=== PATIENT | male | born 1970 | race Caucasian/White ===

== ENCOUNTER 2023-10-15 12:49 | Inpatient (IN) | payer OTHER, SELFPAY ==
[2023-10-15] VITALS (22 sets, daily range): BP systolic 71–133; BP diastolic 49–101; BMI 39.4
--- NOTE | 2023-10-15 10:36 | ED.GENMED ---
Addendum entered and electronically signed by Benji Dockeyr DO 10/15/23 17:00:
Additional diagnoses are diabetic ketoacidosis, renal insufficiency, pseudohyponatremia
Original Note:
History of Present Illness
General
Chief Complaint: Chest Pain
Source: patient and ambulance crew
Exam Limitations: none
Time Seen by Provider: 10/15/23 10:34
Nursing documentation reviewed up to this point in time: agreed with
Travel History
Have you had any contact with someone who has COVID-19?: No
Do you have any symptoms of coronavirus? Fever > 100 degrees, chills, cough, shortness of breath, sore throat, loss of taste or smell, muscle aches, or headache?: No
History of Present Illness
History of Present Illness:
Late entry seen immediately upon presentation prehospital STEMI alert 53-year-old male's been sick with shortness of breath for 2 weeks possibly with COVID said chest burning when he inhaled, went to an urgent care EMS was called initial EKG showed
nonspecific changes EMS his EKG showed ST segment elevation anteriorly placed on oxygen and felt better evaluation here he is chest pain-free still with some ST changes
Hypertension takes valsartan? EMS gave aspirin, states he is not taking a blood thinner
Past History
Past History
ED Past Medical History: HTN and Other (Eliquis? Indication)
Social History
Tobacco: Smoker (Quit recently)
Alcohol: None
Drug: None
Personal:
Living: with family
Employment: Employed
Review of Systems
Review of Systems
All Other Systems: Not applicable
Constitutional: Reports fatigue; Denies fever
Respiratory: Reports trouble breathing
Cardiac: Reports chest pain; Denies diaphoresis or syncope
ABD/GI: Reports no symptoms
: Reports no symptoms
Musculoskeletal: Reports no symptoms
Phy Exam
Physical Exam
Physical Exam:
Physical Exam
General: Ill-appearing
Neck: No jaundice
Heart: s1/s2 regular rate and rhythm, no murmur. equal radial pulses.
Lungs: Crackles bibasilar
Abdomen: Nontender
Neuro: alert and oriented. no focal neurological deficits
Skin: no rash
Psychiatric: well kept. interactive and cooperative
Extremities: No edema pulses are diminished bilaterally
Scores
Heart Score for Chest Pain Patients
STEMI patient?: Yes
Course
Orders/Labs/Results
Orders:
Orders
10/15/23 10:40
CMP [Comprehensive Metabolic Panel] Urgent
Complete Blood Count/With Diff Urgent
PTT Urgent
Troponin I Urgent
10/15/23 10:48
Heparin 1000 Units/500 ml [Heparin] 1,000 units in 500 ml .ROUTE .STK-MED
Heparin Sodium,Porcine/Ns/Pf [Heparin 2000 Units/1000 ml] 2,000 unit in 1,000 ml .ROUTE .STK-MED
Lidocaine HCl/Pf [Xylocaine-Mpf 1% Vial] 50 mg .ROUTE .STK-MED ONE
Nitroglycerin [Tridil] 1,500 mcg .ROUTE .STK-MED ONE
Verapamil Injectable [Isoptin/Verapamil Injection] 5 mg .ROUTE .STK-MED ONE
10/15/23 10:57
NORepinephrine 4 MG/250 ML [Levophed] 4 mg in 250 ml .ROUTE .STK-MED
10/15/23 11:01
Lidocaine HCl/Pf [Xylocaine-Mpf 1% Vial] 50 mg .ROUTE .STK-MED ONE
Abnormal Lab Results
10/15/23
10:40
MPV 11.7 H fL
(7.4-10.4)
Abs Immat Gran (auto) 0.1 H 10^3/uL
(0-0.05)
Absolute Monos (auto) 1.1 H 10^3/uL
(0.1-0.6)
Monocytes % 11.1 H %
(1.7-9.3)
10/15/23 10:40
Vital Signs
Initial and Last Documented VS:
Initial Vital Signs
Pulse Resp BP Pulse Ox
112 18 133/101 96
10/15/23 10:22 10/15/23 10:22 10/15/23 10:22 10/15/23 10:22
Last Documented Vital Signs
Pulse Resp BP Pulse Ox
112 18 103/60 98
10/15/23 10:22 10/15/23 10:22 10/15/23 10:35 10/15/23 10:35
MDM/Problems Addressed
Differential Diagnosis Includes:
DC LV aneurysm PE dissection
MDM/Problems Addressed:
Chest pain shortness
Chronic conditions affecting care: HTN
Acute Exacerbation and/or Progression of Chronic Illness: HTN
*Pulse Oximetry
Patient hypoxic: no
*EKG
Interpreted by ED Provider?: Yes
Interpretation: abnormal
Comparison EKG: no comparison EKG present
Heart Rate: 78
Rate: normal
Rhythm: sinus
Ischemia: ST elevation
*Isotope Technician Interpretation
Rate: normal
Interpretation: normal
Heart Rate: 78
*Critical Care Note
Total Time (30-74mins, 75-104mins- exclusive of procedures): 30
Update Note
Update Note:
Constellation of symptoms most worrisome for ST segment elevation DC, reviewed with cardiology at bedside with taken to [facility]
ED Attending Note
-
Portions of this chart may have been created with voice recognition software.� Occasional wrong word or��sound alike� substitutions may have occurred due to the inherent limitations of voice recognition software.
Discharge Plan
Departure
Patient Disposition: Admit
Date of Disposition: 10/15/23
Time of Disposition: 10:36
Admit to: [facility]
Presentation/result/management discussed w/ accepting MD/DO: cardiolgy Aj
Discharge Problem:
ST elevation DC (STEMI)
Interventions
Interventions:
*Risk Screen - Suicide Last Done: 10/15/23 10:22
*General Assessment Last Done: 10/15/23 10:22
*Neglect/Abuse Screening Last Done: 10/15/23 10:22
ED- Cardiac Assessment Last Done: 10/15/23 11:05
--- NOTE | 2023-10-15 10:47 | ITS.CL.CATH ---
[facility] - Catheterization
Cardiac Catheterization
Procedure Report:
LEFT HEART CATHETERIZATION AND CORONARY INTERVENTION
Date of Procedure: October 15, 2023
Referring: [place] emergency department
PROCEDURES:
1. Left catheterization, coronary angiogram.
2. Ultrasound-guided access
3. Successful percutaneous coronary intervention of a 100% mid LAD occlusion (Lesion Type C, WANDA 0 flow) with a 2.75 x 18 mm Xience arti point drug-eluting stent, successfully postdilated with a 2.75 x 15 mm NC trek balloon at 18 cayla with an
excellent angiographic result and confucianist of WANDA-3 flow into the distal LAD.
INDICATION: Mr Freeman is a 53-year-old gentleman with past medical history of morbid obesity, prediabetes, tobacco abuse, quit 1 month ago, hypertension, recent COVID infection about 4 weeks ago with a 2-week history of on and off chest pressure and
shortness of breath with worsening of symptoms this morning after shower who presented to the urgent care with initial EKG showing sinus tachycardia with J-point elevation in the anterolateral leads. Urgent care set up transfer to emergency
department for further workup and management and and route with EMS his EKG showed significant ST elevations in V2, V3 and V4 for which a prehospital ST elevation MA was called. Patient received full dose aspirin and route however given his soft
blood pressures he did not receive any nitroglycerin. On presentation to the emergency department his pain had subsided and EKG showed no significant ST elevations. Given dynamic ST changes decision was made to activate the heart catheterization
lab to rule out obstructive CAD. Of note, while in the case we received a call from the emergency department that his lab work was concerning for acute DKA with blood glucose level elevated at 700s and bicarb at 11. Patient was loaded with 20 mg
of Brilinta along with 5000 units of IV unfractionated heparin in the emergency department.
ACCESS: Right common femoral artery, 6 Bermudian sheath, under ultrasound guidance using micropuncture kit.
Right radial artery access was attempted however we could not successfully advance her wire despite multiple attempts and thus this was aborted.
HEMODYNAMICS : (mmHg)
AO (s/d) : 84/56
LV (s/d) : 190/3
LVEDP : 17
Transaortic invasive mean gradient severely elevated at 74 mmHg (obtained using 6 Bermudian dual-lumen Corning catheter to allow for simultaneous aortic and LV pressure measurements.)
CORONARY FINDINGS
DOMINANCE: Left
LEFT MAIN: The left main artery is a large-caliber vessel which gives rise to the left anterior descending artery and a left circumflex artery with mild diffuse atherosclerotic plaque.
LEFT ANTERIOR DESCENDING: The left anterior descending artery is a large caliber vessel which gives rise to 1 major small caliber diagonal branch with 100% mid LAD occlusion with presence of dye staining and WANDA 0 flow. This was thought to be the
culprit of patient's presenting acute coronary syndrome.
CIRCUMFLEX: The left circumflex artery is a medium to large caliber, dominant vessel which gives rise to 2 major obtuse marginal branches and the left posterior descending artery. There is mild diffuse atherosclerotic plaque.
RIGHT CORONARY ARTERY: The right coronary artery is a small caliber, nondominant vessel with mild diffuse atherosclerotic plaque.
CORONARY INTERVENTION: The left coronary artery was selectively engaged using a 6 Bermudian EBU 3.5 guide catheter. Additional heparin was given to maintain a therapeutic ACT throughout the case. Given challenging fluoroscopy images due to underlying
body habitus we initially had some difficulty wiring into the actual LAD. After multiple attempts we successfully advance a 190 cm 0.014' BMW coronary wire into the distal LAD. Post coronary wire advancement we noted that the LAD had WANDA-3 flow
now with a hazy smooth tubular 80% stenosis in the mid LAD which we thought was the culprit of patient's presenting acute coronary syndrome. We proceeded with direct stenting of this lesion using a 2.75 x 18 mm Xience arti point drug-eluting stent
which was successfully postdilated using a 2.75 x 15 mm NC trek balloon with excellent angiographic result and WANDA-3 flow down into the distal apical LAD. Throughout the case given patient had borderline blood pressures he needed 1 bolus of 100 mg
of Darrick-Synephrine IV and was started on low-dose Levophed drip. While scrubbed and we received a call from the emergency department physician notifying us that patient's lab work showed concern for possible diabetic ketoacidosis given his blood
sugar of 700 and a bicarb level of 11. Also of note, upon crossing the aortic valve to obtain LV pressures we noted a significant transaortic gradient test at the end of the procedure we went back with a dual-lumen catheter to obtain invasive
pressures which still suggested a significant transaortic gradient despite the ease of being able to cross the aortic valve without much difficulty.
SEDATION: 72 minutes of procedural sedation was utilized. An independent medical radiation dosimetrist was present to assist with and help manage the patient's level of consciousness and physiologic status.
RADIATION SUMMARY: Fluoro Time (min): 9.8, Dose (mGy): 1139.7, DAP (Gy.cm2) : 91.16
Closure Device: 6 Bermudian Angio-Seal of the right common femoral artery with successful hemostasis.
CONCLUSIONS
1. Successful percutaneous coronary intervention of a 100% mid LAD occlusion (Lesion Type C, WANDA 0 flow) with a 2.75 x 18 mm Xience arti point drug-eluting stent, successfully postdilated with a 2.75 x 15 mm NC trek balloon at 18 cayla with an
excellent angiographic result and confucianist of WANDA-3 flow into the distal LAD.
2. Elevated LVEDP.
3. Invasive transaortic mean gradient severely elevated at 74 mmHg (obtained using 6 Bermudian dual-lumen Corning catheter to allow for simultaneous aortic and LV pressure measurements) suggestive of possible critical aortic stenosis.
RECOMMENDATIONS
1. Uninterrupted dual antiplatelet therapy with daily baby aspirin and Brilinta 90 mg twice daily along with high intensity statin and beta-pilar as tolerated. Obtain outpatient cardiology records to clarify indication for Eliquis given it
sounded like possibly an isolated episode of atrial fibrillation in the setting of COVID-19 pneumonia.
2. Bedrest post femoral access per protocol.
3. Defer management of diabetic ketoacidosis to hospitalist team with an insulin drip.
4. Full echocardiogram to assess left ventricular systolic function, wall motions and evaluate aortic valve given concern for possible critical aortic stenosis.
5. Aggressive management of cardiovascular risk factors.
6. Eventual referral for outpatient cardiac rehab.
Chelita Rocha MD, FACC, [facility]
[2023-10-15 10:50] LABS: % Eosinophils 0.6 % (0-6); % Immature Granulocytes 0.5 % (0-0.5); % Lymphocytes 24.8 % (20.5-51.1); % Monocytes 11.1 % (1.7-9.3); Absolute Basophils 0.1 10^3/uL (0-0.2); Absolute Eosinophils 0.1 10^3/uL (0-0.7); Absolute Immature Granulocytes 0.1 10^3/uL (0-0.05); Absolute Lymphocytes 2.5 10^3/uL (1.2-3.4); Absolute Monocytes 1.1 10^3/uL (0.1-0.6); Absolute Neutrophils 6.2 10^3/uL (1.4-6.5); Hematocrit 41.9 % (39.0-52.0); Hemoglobin 15.1 g/dL (13.0-18.0); Mean Corpuscular Hgb 28.8 pg (27.0-31.0); Mean Platelet Volume 11.7 fL (7.4-10.4); Nucleated Red Blood Cells % 0 % (-); Platelet Count 288 10^3/uL (130-400); Red Blood Cell Count 5.24 10^6/uL (4.70-6.10)
[2023-10-15 10:59] LABS: APTT 26.4 Sec (23.4-35.0)
[2023-10-15 11:07] LABS: ALT (SGPT) 189 U/L (0-50); AST (SGOT) 144 U/L (17-59); Albumin 4.3 g/dl (3.5-5.0); Alkaline Phosphatase 217 U/L (38-126); Blood Urea Nitrogen 36 mg/dl (9-20); Calcium 9.5 mg/dl (8.4-10.2); Carbon Dioxide 11 mmol/L (22-30); Chloride 90 mmol/L (98-107); Estimated Creatinine Clearance 73 ml/min; Potassium 4.8 mmol/L (3.5-5.1); Sodium 123 mmol/L (135-145); Total Bilirubin 1.1 mg/dl (0.2-1.3); Total Protein 6.9 g/dl (6.3-8.2); eGFR 50.57
[2023-10-15 11:15] LABS: Troponin I 0.083 ng/ml
[2023-10-15 11:31] LABS: Glucose 723 mg/dl (70-99)
[2023-10-15 11:35] LABS: ACT-LR - POC 240 Seconds (116-155)
--- NOTE | 2023-10-15 11:42 | HPS.HSE ---
Addendum entered and electronically signed by Noel Dye MD 10/29/23 06:50:
Allergies
Allergy/AdvReac Type Severity Reaction Status Date / Time
No Known Allergies Allergy Unverified 10/15/23 10:31
Home Medications
Centrum Adult 50 Plus 1XD Supplement PO
Prilosec OTC 20 1XD Gastrointestinal Issue PO
magnesium oxide 500 mg PO DAILY Electrolyte Repletion
metformin 500 mg tablet 500 mg PO QPM
Original Note:
Family Physician
-
Family Physician: Patrice Oneal
Chief Complaint
-
Chest Pain
History of Present Illness
53M morbid obesity former smoker (quit 1 month ago) COVID infection 1 month ago p/w with progressive chest pain exertional dyspnea for past 2 weeks described as burning left sided occasionally radiating to right- prompted by to visit ED when
pain became significantly debilitating limiting ambulation. Occasionally use cane for ambulation due to past knee surgery. ED evaluation was significant for STEMI, troponin elevation 0.083, DKA anion gap 22 with sugar 723, pseudohyponatremia 123
corrected for hyperglycemia 130s. Taken urgently to laboratory monitor LAD stent was placed with subsequent resolution of symptoms, chest pain and dyspnea. Denies nausea vomiting. Tachycardia otherwise VSS.
Medical History
Past Medical History
Past Medical History: Reports Other (as above)
Past Surgical History: Reports Other (as above)
Social History
Tobacco: Former Smoker
Alcohol: None
Drug: None
Personal:
Living: With Family
Employment: Not Employed
Family History
Family History: Not pertinent (reviewed)
Allergies / Home Medications
Allergies reflects when Allergies were last updated in [employer].
Home Medications with original date entered in [employer]
Allergy/Medication List:
Allergies
Allergy/AdvReac Type Severity Reaction Status Date / Time
No Known Allergies Allergy Unverified 10/15/23 10:31
Review of Systems
-
A 12 point ROS was completed and negative except as noted: Yes
Constitutional: Reports Other (as below)
Physical Exam
Vital Signs
Vital Signs
Pulse Resp BP Pulse Ox
112 18 103/60 98
10/15/23 10:22 10/15/23 10:22 10/15/23 10:35 10/15/23 11:06
Physical Exam
General: Other (as below)
Laboratory Results
-
10/15/23 10:40
10/15/23 10:40
Laboratory Results
APTT 26.4 Sec (23.4-35.0) 10/15/23 10:40
Total Bilirubin 1.1 mg/dl (0.2-1.3) 10/15/23 10:40
AST 144 U/L (17-59) H 10/15/23 10:40
ALT 189 U/L (0-50) H 10/15/23 10:40
Alkaline Phosphatase 217 U/L (38-126) H 10/15/23 10:40
Troponin I 0.083 ng/ml H* 10/15/23 10:40
Impression/Plan
-
ROS
General: Denies fever chills night sweats unexpected weight loss
Neuro: Denies seizure shaking loss of consciousness dizziness vertigo
Psych: denies depression hallucinations confusion manic episodes
Endocrine: Denies polyuria polydipsia polyphagia heat/cold intolerance
HEENT: Denies blindness visual disturbances epistaxis
Pulmonary: denies coughing hemoptysis sneezing reports sob dyspnea on exertion (currently resolved at rest following cath)
Cardiovascular: reports chest pain resolved
Hematology: denies signs symptoms of anemia easy bruising/bleeding
Gastrointestinal: denies nausea vomiting diarrhea constipation hematemesis hematochezia melena
Genito-Urinary: denies retention incontinence dysuria
Musculoskeletal: denies joint pain weakness
Dermatology: denies rash laceration bruising
Physical Exam
General: No pallor, cyanosis, or jaundice.
HEENT: Throat clear. PERRLA Normocephalic atraumatic
NECK: Supple. No JVD Carotid Bruits
RESPIRATORY: Lungs clear to auscultation. No crackles wheezes stridor
CVS: Tachycardia
ABDOMEN: Soft, non-tender. No distension. BS+/normal.
EXTREMITIES: No peripheral cyanosis or edema.
BOAT DECKHAND: AOx3. No focal deficits.
IMPRESSION:
53M morbid obesity former smoker (quit 1 month ago) COVID infection 1 month ago p/w with progressive chest pain exertional dyspnea for past 2 weeks described as burning left sided occasionally radiating to right- prompted by to visit ED when
pain became significantly debilitating limiting ambulation. Occasionally use cane for ambulation due to past knee surgery. ED evaluation was significant for STEMI, troponin elevation 0.083, DKA anion gap 22 with sugar 723, pseudohyponatremia 123
corrected for hyperglycemia 130s. Taken urgently to laboratory monitor LAD stent was placed with subsequent resolution of symptoms, chest pain and dyspnea. Denies nausea vomiting. Tachycardia otherwise VSS.
PLAN:
#NSTEMI
Cardio eval appreciated status post cath with LAD stent placement 10/15
Continue statin DAPT (aspirin and Brilinta) as per cardio
#Diabetes
#DKA
#Pseudohyponatremia, sodium relatively within normal limits when corrected for hyperglycemia
#Possible TRAMAINE versus CKD initial creatinine 1.6 unknown baseline
ICU admit
Training And Development Specialist eval requested
Monitor Na
Follow-up A1c
Insulin GTT
IV fluid with potassium supplementation
Follow-up VBG
Monitor anion gap and renal function
#Morbid obesity
DVT prophylaxis heparin
GI prophylaxis Protonix
Full code
I spent a total of 78 minutes with the patient or on the floor. More than 50% of this time involved counseling and coordination of care.
[2023-10-15 11:55] LABS: ACT-LR - POC 265 Seconds (116-155)
[2023-10-15 12:50] LABS: Glucose - Point of Care > 600 mg/dl (70-99)
--- NOTE | 2023-10-15 12:51 | CON.INTV ---
Consultation
Consultation Request
Date/Time Consultation Requested: 10-15-23
Date/Time Consultation Performed: 10-15-23
Requesting Provider: Hospitalist
Performing Provider: Dr Rhodes
Reason for Consultation: AMI
Medical History
-
Chief Complaint: CP
History of Present Illness:
Mr Freeman is a 53/M adm 10-14 with 2 wk h/o progressive dyspnea, he suspected COVID but not confirmed by testing, no specific meds.
Went to where EKG was abnormal, EMS called, given ASA and brought to ER.
At ER, ST elevation in anterior leads, started on IV heparin, taken to labour market economist, LAD stented. Elevated G with elevated AG. Transferred to ICU after LAD stenting, on NE gtt
Denies dyspnea, CP, n/v
Former smoker and drinker, quit 1 m ago
Not on home O2 or BDs
Followed by outside cards practice for CP
Past Medical History
Past Medical History: Other (see A&P for PMH/PSH)
Social History
Tobacco: Former Smoker
Alcohol: Former
Drug: Marijuana (used to be in medical marijuana in past)
Personal:
Living: With Family
Employment: Not Employed
Family History
Family History: Reviewed & Not Pertinent
Allergies / Home Medications
Allergies
Allergy/AdvReac Type Severity Reaction Status Date / Time
No Known Allergies Allergy Unverified 10/15/23 10:31
Review of Systems
-
History Source: Patient
All other systems: Negative unless noted
Cardiac: Chest Pain
Neuro: Other (anxiety)
Vitals / Labs / Diagnostic Testing
Vital Signs
Pulse Resp BP Pulse Ox
112 18 103/60 98
10/15/23 10:22 10/15/23 10:22 10/15/23 10:35 10/15/23 11:06
Lab Data
10/15/23 10:40
Laboratory Results
10/15/23
10:40
APTT 26.4
Diagnostic Testing:
Physical Exam
-
HEENT: Normocephalic, Moist Mucous Membranes and Other (forehead lipoma)
Cardiovascular: Regular Rhythm, Murmur (AV), Peripheral Edema and JVD
Respiratory: Clear and Non-Labored Respirations
GI: Soft, Non Distended and Non Tender
Neurology: Awake, AO x 3, No Motor Deficits and Other (anxious)
Skin: Dry
General: Respiratory Distress (n)
Assessment
-
Assessment:
Mr Freeman is a 53/M adm 10-14 with 2 wk h/o progressive dyspnea, he suspected COVID but not confirmed by testing, no specific meds. Went to where EKG was abnormal, EMS called, given ASA and brought to ER. At ER, ST elevation in anterior leads,
started on IV heparin, taken to labour market economist, LAD stented. Elevated G with elevated AG. Transferred to ICU after LAD stenting, on NE gtt
Impression:
STEMI
S/p LAD stenting
Suspected significant AD
Elevated troponin
DKA
Transaminitis
Conditions MILL MANAGER:
CAD: followed by outside cards practice, received ST in past with inconclusive results
HTN
PAFib, not on AC
BRODIE, could not tolerate CPAP
Former heavy smoker, quit 1 m MILL MANAGER
Former ETOH use, quit 1 m MILL MANAGER
Plan:
O2 protocol
Keep POx>=94%
Asp precs
IS
Continue ticagrelor and low dose ASA
Cards following
Monitor R groin (entry site for [facility])
prn SL NTG
DKA likely triggered by ACS in a patient with prediabetes condition
DKA protocol
Insulin IV gtt
NS
Electrolyte replacement as needed
Per patient h/o 'borderline diabetes, not on outpatient therapy
Discontinue NE gtt due to interim hypertension
Transaminitis likely due to ACS
GI and DVT prophylaxis
Critical care time: 35 min
[2023-10-15 13:07] LABS: Venous Blood Gas HCO3 14.7 mmol/L (22-27); Venous Blood Gas O2 Sat % 97.7 %; Venous Blood Gas pCO2 26 mmHg (35-48); Venous Blood Gas pH 7.36 (7.32-7.43); Venous Blood Gas pO2 86 mmHg (30-50)
--- NOTE | 2023-10-15 13:07 | CON.CAR ---
Consultation
Consultation Request
Date/Time Consultation Requested: 10/15/2023
Date/Time Consultation Performed: 10/15/2023
Requesting Provider: Dr. Dye
Performing Provider: Dr. Mcgarry
Reason for Consultation: STEMI
Medical History
-
Chief Complaint: Chest pain/STEMI
History of Present Illness:
53-year-old male (primarily known to Dr. Taylor) with paroxysmal atrial fibrillation (recently prescribed Eliquis, but patient has not began taking), hypertension, chronic cigarette use (approximately one half PPD since age 11; quit 1 month ago
after marisol COVID), and obesity admitted with a STEMI. Patient underwent successful stenting of the mid LAD. He was also found to be in DKA with a blood glucose above 700. The patient states that he had been having recurrent episodes of
chest pain and has also been experiencing significant thirst and dry mouth. He presented to urgent care today who found an abnormal EKG, whereby EMS was called and the patient was transported to [facility]. The patient states that he was
told that he had a heart murmur last year, but it does not appear that he underwent an echocardiogram.
Past Medical History
Past Medical History: HTN
Past Surgical History: Orthopedic (Rotator cuff surgery, knee scope, back injections)
Social History
Tobacco: Smoker (Quit 1 month ago; smoked since age 11)
Alcohol: Daily
Drug: Marijuana (Medical marijuana)
Personal:
Living: With Family
Family History
Family History: Reviewed & Not Pertinent
Allergies / Home Medications
Allergy/AdvReac Type Severity Reaction Status Date / Time
No Known Allergies Allergy Unverified 10/15/23 10:31
Review of Systems
-
History Source: Patient
All other systems: Negative unless noted
Endocrine: Polydipsia
Physical Exam
Vital Signs
Temp Pulse Resp BP Pulse Ox
99.2 F 112 18 103/60 98
10/15/23 13:00 02/03/24 10:22 10/15/23 10:22 10/15/23 10:35 10/15/23 11:06
Lab Results
10/15/23 10:40
Troponin I 0.083 ng/ml H* 10/15/23 10:40
Physical Exam
General: No Apparent Distress and Comfortable
HEENT: Anicteric and Other (Dry oral mucous membranes)
Respiratory: Clear
Cardiac: S1/S2, Regular Rhythm and Murmur (3/6 systolic)
Breast: N/A
GI: Soft
Rectal: Deferred by Provider
Musculoskeletal: No Clubbing, No Cyanosis and No Edema
Skin: Warm
Neuro: AO x 3
Psych: Calm
Impression / Plan
-
53-year-old male (primarily known to Dr. Taylor) with paroxysmal atrial fibrillation (recently prescribed Eliquis, but patient has not began taking), hypertension, chronic cigarette use (approximately one half PPD since age 11; quit 1 month ago
after marisol COVID), and obesity admitted with a STEMI.
CAD/STEMI:
-Successful HOLGER to mid LAD.
-Continue aspirin/Brilinta.
-Continue rosuvastatin 40 mg daily.
-Will continue to optimize throughout hospitalization as vitals allow (beta-pilar, etc.).
-Echocardiogram today.
-playground monitor.
Heart murmur:
-Cardiac catheterization with concern for severe aortic stenosis as the mean gradient obtained preliminarily was 77 mmHg.
-Echocardiogram today as above.
DKA:
-Sodium 123, carbon dioxide 11, BUN 36, creatinine 1.6, glucose 7.23; elevated LFTs.
-Management as per primary team.
PAF:
-Patient never initiated Eliquis as an outpatient.
Hypertension:
-Will optimize medications prior to discharge.
Chronic smoker.
-Should continue to refrain from tobacco use.
Obesity:
-Aggressive weight loss and regular exercise recommended.
Data Reviewed
-
EKG: Tracing Personally Visualized and interpreted (Sinus tachycardia at [address].)
Labs: Labs Reviewed by me and Discussed with Physician (Interventional Cardiology, Hospitalist)
Old Records: Requested
[2023-10-15 13:44] LABS: Troponin I 0.081 ng/ml
[2023-10-15 13:46] LABS: Blood Urea Nitrogen 36 mg/dl (9-20); Carbon Dioxide 13 mmol/L (22-30); Chloride 92 mmol/L (98-107); Estimated Creatinine Clearance 71 ml/min; Potassium 4.6 mmol/L (3.5-5.1); Sodium 125 mmol/L (135-145); eGFR 50.57
[2023-10-15 14:03] LABS: Glucose 636 mg/dl (70-99)
[2023-10-15] MEDS: NOVOLIN R INSULIN INFUSION 100 IV (14:22)
[2023-10-15 14:25] LABS: Glycohemoglobin (HgbA1c) > 18.5 % (4.0-5.6)
[2023-10-15] MEDS: NSS with KCL 20 MEQ 1000 IV ×2 (14:59→19:34)
[2023-10-15 15:48] LABS: Glucose - Point of Care 553 mg/dl (70-99)
[2023-10-15] MEDS: HEPARIN 5000 UNITS SC (16:04)
[2023-10-15] MEDS: PROTONIX 40 MG PO (16:04)
[2023-10-15 16:17] LABS: Glucose 586 mg/dl (70-99)
--- NOTE | 2023-10-15 16:25 | PTCARENOTE ---
R groin cath site oozing. Dressing removed. Pressure held for 10 minutes. Dressing reapplied. Site dry and intact. Support offered to patient and .
--- NOTE | 2023-10-15 16:38 | PTCARENOTE ---
Dr Dye aware of glucose. Insulin drip remains at 6U/hr.
[2023-10-15 16:46] LABS: Glucose - Point of Care 523 mg/dl (70-99)
[2023-10-15 17:30] LABS: Glucose 511 mg/dl (70-99)
[2023-10-15 18:14] LABS: Glucose - Point of Care 448 mg/dl (70-99)
[2023-10-15] MEDS: CRESTOR 40 MG PO (18:17)
--- NOTE | 2023-10-15 18:30 | PTCARENOTE ---
HOB raised approx 20 degrees. Groin site remains intact. No distress. Monitoring glucose as ordered. Denies pain. Appears comfortable.
[2023-10-15 18:55] LABS: Blood Urea Nitrogen 40 mg/dl (9-20); Calcium 8.9 mg/dl (8.4-10.2); Carbon Dioxide 19 mmol/L (22-30); Chloride 97 mmol/L (98-107); Estimated Creatinine Clearance 67 ml/min; Glucose 453 mg/dl (70-99); Potassium 4.2 mmol/L (3.5-5.1); Sodium 128 mmol/L (135-145); eGFR 47.02
[2023-10-15 18:56] LABS: Troponin I 0.134 ng/ml
[2023-10-15 19:14] LABS: Glucose - Point of Care 410 mg/dl (70-99)
[2023-10-15] MEDS: BRILINTA 90 MG PO (19:34)
[2023-10-15 19:44] LABS: Glucose 434 mg/dl (70-99)
[2023-10-15 20:08] LABS: Glucose - Point of Care 390 mg/dl (70-99)
[2023-10-15] MEDS: NSS 250 IV (20:18)
--- NOTE | 2023-10-15 20:30 | PTCARENOTE ---
Assumed care of patient at 1900. Pt. currently in bed. Awake, alert, and oriented. States he has no pain or discomfort at this time. Afebrile. Heart rhythm sinus. Blood pressure hypotensive 70s/40s. Nurse Practitioner made aware. 250ml NSS bolus
ordered and given. Pt. currently on room air. Lungs sound diminished. NPO. Insulin gtt infusing per DKA protocol. Voiding in urinal without issue. Skin as documented. Discussed plan of care. Vital signs stable at this time.
[2023-10-15 21:08] LABS: Glucose - Point of Care 332 mg/dl (70-99)
[2023-10-15 22:08] LABS: Glucose - Point of Care 275 mg/dl (70-99)
[2023-10-15 22:40] LABS: Blood Urea Nitrogen 42 mg/dl (9-20); Calcium 8.8 mg/dl (8.4-10.2); Carbon Dioxide 19 mmol/L (22-30); Chloride 102 mmol/L (98-107); Estimated Creatinine Clearance 57 ml/min; Glucose 309 mg/dl (70-99); Potassium 4.1 mmol/L (3.5-5.1); Sodium 130 mmol/L (135-145); eGFR 38.69
[2023-10-15 23:13] LABS: Glucose - Point of Care 316 mg/dl (70-99)
[2023-10-16] VITALS (30 sets, daily range): BP systolic 83–146; BP diastolic 43–124; BMI 39.7
[2023-10-16 00:11] LABS: Glucose - Point of Care 256 mg/dl (70-99)
--- NOTE | 2023-10-16 00:12 | PTCARENOTE ---
Pt. currently on levophed gtt to maintain MAP >65. Continuing insulin gtt and IVF per DKA protocol. Trending lab work. Groin site remains intact, no bleeding or hematoma noted. Pulses present. Vital signs stable at this time.
[2023-10-16] MEDS: HEPARIN 5000 UNITS SC ×4 (00:56→23:06)
[2023-10-16 01:11] LABS: Glucose - Point of Care 248 mg/dl (70-99)
[2023-10-16 02:05] LABS: Blood Urea Nitrogen 41 mg/dl (9-20); Calcium 8.5 mg/dl (8.4-10.2); Carbon Dioxide 19 mmol/L (22-30); Chloride 105 mmol/L (98-107); Estimated Creatinine Clearance 67 ml/min; Glucose 256 mg/dl (70-99); Potassium 3.8 mmol/L (3.5-5.1); Sodium 133 mmol/L (135-145); Troponin I 0.157 ng/ml; eGFR 47.02
[2023-10-16 02:16] LABS: Glucose - Point of Care 243 mg/dl (70-99)
[2023-10-16] MEDS: NSS with KCL 20 MEQ 1000 IV (02:58)
[2023-10-16 03:07] LABS: Glucose - Point of Care 241 mg/dl (70-99)
[2023-10-16] MEDS: LEVOPHED 250 IV (04:02)
[2023-10-16 04:07] LABS: Glucose - Point of Care 260 mg/dl (70-99)
--- NOTE | 2023-10-16 04:30 | PTCARENOTE ---
Pt. assessment remains unchanged. Levophed gtt infusing. Insulin gtt infusing per DKA protocol. Trending lab work. Vital signs stable at this time.
[2023-10-16 05:18] LABS: Glucose - Point of Care 238 mg/dl (70-99)
[2023-10-16] MEDS: D5/0.45%NSS with KCL 20 MEQ 1000 IV ×2 (05:24→13:49)
[2023-10-16 05:51] LABS: Hematocrit 35.8 % (39.0-52.0); Mean Corp Hgb Conc. 36.3 g/dL (33.0-37.0); Mean Corpuscular Hgb 29.8 pg (27.0-31.0); Mean Corpuscular Volume 82.1 fL (80.0-94.0); Mean Platelet Volume 11.1 fL (7.4-10.4); Platelet Count 234 10^3/uL (130-400); Red Blood Cell Count 4.36 10^6/uL (4.70-6.10); Red Cell Dist. Width 14.5 % (11.5-14.5); White Blood Cell Count 9.8 10^3/uL (4.8-10.8)
[2023-10-16 06:12] LABS: Blood Urea Nitrogen 40 mg/dl (9-20); Calcium 8.6 mg/dl (8.4-10.2); Carbon Dioxide 19 mmol/L (22-30); Chloride 106 mmol/L (98-107); Estimated Creatinine Clearance 82 ml/min; Glucose 225 mg/dl (70-99); Potassium 3.7 mmol/L (3.5-5.1); Sodium 133 mmol/L (135-145); eGFR 59.36
[2023-10-16 06:13] LABS: INR 1.09
[2023-10-16 06:14] LABS: Glucose - Point of Care 260 mg/dl (70-99)
[2023-10-16 07:09] LABS: Glucose - Point of Care 264 mg/dl (70-99)
[2023-10-16] MEDS: LOW STRENGTH ASPIRIN 81 MG PO (07:41)
[2023-10-16] MEDS: BRILINTA 90 MG PO ×2 (07:41→20:24)
[2023-10-16] MEDS: PROTONIX 40 MG PO (07:41)
--- NOTE | 2023-10-16 07:51 | W.PN.HOSP.TC ---
Today's Communication/Plan
-
Insulin gtt transitioned to Subq
downgrade to IVU
continue glycemic control
DAPT statin as per Cardio
Diabetes PHOTO BOOTH OPERATOR consult in AM Tuesday
Assessment / Plan
Assessment / Plan
Physical Exam
General: No pallor, cyanosis, or jaundice.
HEENT: Throat clear. PERRLA Normocephalic atraumatic
NECK: Supple. No JVD Carotid Bruits
RESPIRATORY: Lungs clear to auscultation. No crackles wheezes stridor
CVS: Tachycardia
ABDOMEN: Soft, non-tender. No distension. BS+/normal.
EXTREMITIES: No peripheral cyanosis or edema.
SHELL FREEZING MACHINE OPERATOR: AOx3. No focal deficits.
IMPRESSION:
53M morbid obesity former smoker (quit 1 month ago) COVID infection 1 month ago p/w with progressive chest pain exertional dyspnea for past 2 weeks described as burning left sided occasionally radiating to right- prompted by to visit ED when
pain became significantly debilitating limiting ambulation.� Occasionally use cane for ambulation due to past knee surgery.� ED evaluation was significant for STEMI, troponin elevation 0.083, DKA anion gap 22 with sugar 723,� pseudohyponatremia 123
corrected for hyperglycemia 130s.� Taken urgently to laborer brush clearing LAD stent was placed with subsequent resolution of symptoms, chest pain and dyspnea.� Denies nausea vomiting.� Tachycardia otherwise VSS.
PLAN:
#STEMI (correction to prior documentation)
#HOCM
#possible hx pAfib
Cardio eval appreciated status post cath with LAD stent placement 10/15
Continue statin DAPT (aspirin and Brilinta) as per Cardio, possible triple therapy if hx pafib confirmed with patient's outpatient visual designer
ECHO noted mod to severe concentric left ventricular hypertrophy EF>75% consistent with HOCM
Troponin trended to peak 0.157 since trended down
Currently Chest pain free
#Diabetes
#DKA
#Pseudohyponatremia, sodium relatively within normal limits when corrected for hyperglycemia
#Possible TRAMAINE versus CKD initial creatinine 1.6 unknown baseline
ICU admit
downgraded to IVU 10/16 with resolution DKA
Magnetic Testing Technician eval appreciated
Follow-up A1c >18.5
Insulin GTT transitioned to SubQ following closing of anion gap
IV fluid supplementation since discontinued with diet resumed tolerating well
Novolog 5U premeal, medium dose sliding scale, Lantus 10U HS
will monitor and titrate insulin regimen as necessary
Diabetes PHOTO BOOTH OPERATOR consult in AM Tuesday (not available over weekend)
#Morbid obesity
DVT prophylaxis heparin
GI prophylaxis Protonix
Full code
I spent a total of 55� � minutes with the patient or on the floor. More than 50% of this time involved counseling and coordination of care.
Anticipated Discharge: 24 - 48 hours
Subjective/Interval History
-
Date of Service: October 16, 2023
No acute distress resting comfortably in bed. Denies any no acute issues. Eager to resume oral diet. denies nausea vomiting chest pain
Objective Data
-
Labs:
Laboratory Results
10/15/23 10/16/23 10/16/23
22:12 01:34 05:33
WBC 9.8
Hgb 13.0
Hct 35.8 L
Plt Count 234
PT 14.0
INR 1.09
APTT 27.0
Sodium 130 L 133 L 133 L
Potassium 4.1 3.8 3.7
Chloride 102 105 106
Carbon Dioxide 19 L 19 L 19 L
BUN 42 H 41 H 40 H
Creatinine 2.0 H 1.7 H 1.4 H
Glucose 309 H 256 H 225 H
Calcium 8.8 8.5 8.6
Vital Signs:
Vital Signs
Temp Pulse Resp BP Pulse Ox
97.3 F 80 18 113/65 97
10/16/23 07:44 10/16/23 06:04 10/16/23 06:04 10/16/23 06:04 10/16/23 06:04
I&O
10/15/23 10/16/23 10/17/23
06:59 06:59 06:59
Intake Total 3129.0 / 3129.0
Output Total 1250 / 1250
Balance 1879.0 / 1879.0
[2023-10-16 08:15] LABS: Glucose - Point of Care 264 mg/dl (70-99)
[2023-10-16] MEDS: NOVOLIN R INSULIN INFUSION 100 IV (09:06)
[2023-10-16 09:13] LABS: Glucose - Point of Care 313 mg/dl (70-99)
[2023-10-16 10:16] LABS: Glucose - Point of Care 326 mg/dl (70-99)
--- NOTE | 2023-10-16 10:40 | W.PN.INTV ---
Today's Communication / Plan
Recommendations
IVU
Reconsult prn
Assessment
-
Assessment:
Mr Freeman is a 53/M adm 10-14 with 2 wk h/o progressive dyspnea, he suspected COVID but not confirmed by testing, no specific meds. Went to where EKG was abnormal, EMS called, given ASA and brought to ER. At ER, ST elevation in anterior leads,
started on IV heparin, taken to medical lab specialist, LAD stented. Elevated G with elevated AG. Transferred to ICU after LAD stenting, on NE gtt
Impression:
STEMI
S/p LAD stenting
Suspected significant AD
Elevated troponin
DKA
Transaminitis
Conditions INTERMEDIATE MANAGER:
CAD: followed by outside cards practice, received ST in past with inconclusive results
HTN
PAFib, not on AC
BRODIE, could not tolerate CPAP
Former heavy smoker, quit 1 m INTERMEDIATE MANAGER
Former ETOH use, quit 1 m INTERMEDIATE MANAGER
Plan:
O2 protocol
Keep POx>=94%
Asp precs
IS
Continue ticagrelor and low dose ASA
Cards following
prn SL NTG
DKA likely triggered by ACS in a patient with prediabetes condition
DKA protocol
Insulin IV gtt
NS
AG closed
Transition IV insulin to corrective insulin SS
Electrolyte replacement as needed
Per patient h/o 'borderline' diabetes, not on outpatient therapy
Discontinue NE gtt due to interim hypertension
Transaminitis likely due to ACS
GI and DVT prophylaxis
D/w Mr Freeman
D/w Dr Young
Can transfer to IVU
Reconsult prn
Subjective Dataa
Subjective Data
Date of Service:
Date of Service: October 16, 2023
Chief Complaint: Facility Maintenance Manager Follow Up
Subjective:
No major events reported overnight
No chest pain
No respiratory distress, pulse ox 95 to 97% on room air
Review of Systems
General: Fever (n), Sweats, Chills (n) and Satisfactory Appetite (n)
HEENT: Epistaxis (n) and Dysphagia (n)
Cardiopulmonary: Dyspnea, Cough and Chest Pain (n)
GI: Abdominal Pain (n), Nausea (n) and Vomiting (n)
Neuro: Weakness (n)
Objective Data
Data Reviewed
Vital Signs / I&O / Oxygen:
Vital Signs
Temp Pulse Resp BP Pulse Ox
97.3 F 80 18 113/65 94
10/16/23 07:44 10/16/23 06:04 10/16/23 06:04 10/16/23 06:04 10/16/23 08:00
Intake and Output
10/15/23 10/16/23 10/17/23
06:59 06:59 06:59
Intake Total 3129.0 / 3298.0 330.5 / 330.5
Output Total 1250 / 1250 200 / 200
Balance 1879.0 / 2048.0 130.5 / 130.5
SaO2 94
Nasal Cannula flow liters per 2
minute
Physical Exam
General: Comfortable
HEENT: Normocephalic and Moist Mucous Membranes
Cardiovascular: Regular Rhythm, Murmur (AV) and Peripheral Edema (n)
Respiratory: Clear, Non-Labored Respirations and Stridor
GI: Soft, Non Distended and Non Tender
Neurology: Awake, AO x 3 and No Motor Deficits
Skin: Dry
Labs/Micro/Reports
Lab Data
10/16/23 05:33
Laboratory Results
10/15/23 10/16/23
10:40 05:33
PT 14.0
INR 1.09
APTT 26.4 27.0
[2023-10-16] MEDS: LANTUS 0.100000000000000006 UNITS SC ×2 (11:01→23:00)
[2023-10-16] MEDS: NOVOLOG FLEXPEN 3 UNITS SC (11:01)
--- NOTE | 2023-10-16 11:23 | W.PN.CD ---
Today's Communication / Plan
-
-Relatively stable successful HOLGER to mid LAD yesterday (10/15/2023).
-Echocardiographic findings yesterday were consistent with HOCM, moderate to severe concentric LVH, and hyperdynamic LV function with LVEF >75%.
-Will try to initiate Toprol-XL (starting at 25 mg daily) as blood pressure improves; will reevaluate tomorrow.
-Needs aggressive IV fluids for HOCM in the setting of DKA.
-Obtain records for primary [facility] tomorrow; if it is confirmed that patient has PAF, then triple therapy is recommended for 1 week by Interventional Cardiology and then Eliquis with Brilinta (or Plavix)--patient is currently in sinus rhythm.
Impression / Plan
-
53-year-old male (primarily known to Dr. Taylor) with paroxysmal atrial fibrillation (recently prescribed Eliquis, but patient has not began taking), hypertension, chronic cigarette use (approximately one half PPD since age 11; quit 1 month ago
after marisol COVID), and obesity admitted with a STEMI.
CAD/STEMI:
-Relatively stable successful HOLGER to mid LAD yesterday (10/15/2023).
-Continue aspirin/Brilinta.
-Continue rosuvastatin 40 mg daily.
-Will continue to optimize throughout hospitalization as vitals allow (beta-pilar, etc.).
-Continue quality assurance monitor.
HOCM:
-Echocardiographic findings yesterday were consistent with HOCM, moderate to severe concentric LVH, and hyperdynamic LV function with LVEF >75%.
-Will try to initiate Toprol-XL (starting at 25 mg daily) as blood pressure improves; will reevaluate tomorrow.
-Needs aggressive IV fluids for HOCM in the setting of DKA.
DKA:
-Sodium 123, carbon dioxide 11, BUN 36, creatinine 1.6, glucose 7.23; elevated LFTs.
-Currently on an insulin drip.
-Management as per primary team.
PAF:
-Patient never initiated Eliquis as an outpatient.
-Obtain records for primary [facility] tomorrow; if it is confirmed that patient has PAF, then triple therapy is recommended for 1 week by Interventional Cardiology and then Eliquis with Brilinta (or Plavix)--patient is currently in sinus rhythm.
Hypertension:
-Will optimize medications prior to discharge.
Chronic smoker.
-Should continue to refrain from tobacco use.
Obesity:
-Aggressive weight loss and regular exercise recommended.
Physical Exam
Vital Signs/Labs
Vital Signs
Temp Pulse Resp BP Pulse Ox
97.4 F 80 18 113/65 94
10/16/23 11:16 10/16/23 06:04 10/16/23 06:04 10/16/23 06:04 10/16/23 08:00
10/15/23 10/16/23 10/17/23
06:59 06:59 06:59
Actual Weight 129.1 kg
10/16/23 05:33
PT 14.0 Sec (11.4-14.6) 10/16/23 05:33
INR 1.09 10/16/23 05:33
APTT 27.0 Sec (23.4-35.0) 10/16/23 05:33
LAB Results
10/15/23 10/15/23 10/15/23
10:40 13:00 18:12
Troponin I 0.083 H* 0.081 H* 0.134 H* D
10/16/23
01:34
Troponin I 0.157 H*
Physical Exam
Constitutional: No acute distress and Comfortable
EENT: Anicteric
Cardiovascular: Rhythm & rate is regular, Pedal edema is absent, Systolic murmur present (12/16) and S1S2 is normal
Respiratory: Respiratory effort normal and Lungs clear to auscul.
GI: Soft
Neuro/Psych: AO x 3
Other: Skin (Warm, dry, intact)
Data Reviewed
-
Date of Service: October 16, 2023
EKG: Tracing Personally Visualized and interpreted (Telemetry: Sinus rhythm)
Echo: Tracing Personally Visualized and interpreted (Echo 10/15/2023: LVEF greater than 75%, HOCM)
Medical Tests (PFT, Pathology etc): Discussed with Physician (Clinic Office Assistant)
Labs: Labs Reviewed by me
Critical Care Time (in minutes): 38
[2023-10-16 11:57] LABS: Glucose - Point of Care 302 mg/dl (70-99)
[2023-10-16] MEDS: NOVOLOG FLEXPEN-LOW RESISTANCE 4 UNITS SC (12:00)
--- NOTE | 2023-10-16 14:07 | PTCARENOTE ---
Pt ambulated to BR. Gait steady. No changes in am assessment. OOB in chair. Family at bedside. Denies pain. Denies SOB.
[2023-10-16 16:59] LABS: Glucose - Point of Care 490 mg/dl (70-99)
[2023-10-16] MEDS: CRESTOR 40 MG PO (17:07)
[2023-10-16 17:38] LABS: Glucose 443 mg/dl (70-99)
[2023-10-16] MEDS: NOVOLOG FLEXPEN-MODERATE RESISTANCE 11 UNITS SC (17:56)
[2023-10-16] MEDS: NOVOLOG FLEXPEN 5 UNITS SC (17:57)
[2023-10-16] MEDS: NOVOLOG FLEXPEN-LOW RESISTANCE SC (17:59)
[2023-10-16 18:00] LABS: Troponin I 0.152 ng/ml
--- NOTE | 2023-10-16 18:20 | PTCARENOTE ---
Pt transferred to IVU. No distress.
[2023-10-16 23:13] LABS: Glucose - Point of Care 381 mg/dl (70-99)
[2023-10-16] MEDS: NOVOLOG FLEXPEN 10 UNITS SC (23:50)
--- NOTE | 2023-10-17 00:33 | PTCARENOTE ---
Addendum entered by Eduardo Scott RN 10/17/23 05:26:
Blood sugar recheck 329, LYE MACHINE OPERATOR notified, additional 10 units insulin aspart ordered and administered. Blood sugar recheck 2 hours later 299.
Original Note:
Pt received start of shift HR SR 80s. R groin site CDI, ecchymotic. Pt OOB to bathroom, gait stable. Pt states they feel 'much calmer' now that they are no longer on ICU. Pt states they felt too overwhelmed to process education on disease/treatments
prior to arrival to IVU. Reinforced education on what is a heart attack, purpose of anticoagulants, purpose of stent, and some diabetes education. CAD/ACS book given. Pt denies any further questions at this time, but will ask them/write them down as
they come up. Pt denies any CP, SOB, or lightheadedness/dizziness at this time. Informed to notify RN if any changes, call quintana within reach.
TT LYE MACHINE OPERATOR Franca Singh for HS blood sugar 381, additional 10 units of insulin aspart ordered and administered. Will recheck blood sugar level in 2 hours.
Attempted med rec, pt states they are very unsure of which meds they actually take and will wait to confirm meds when comes with list tomorrow (10/17). Will pass on to dayshift RN.
[2023-10-17 02:25] VITALS: BP 116/64
[2023-10-17 02:27] LABS: Glucose - Point of Care 329 mg/dl (70-99)
[2023-10-17 02:53] LABS: Hematocrit 32.4 % (39.0-52.0); Hemoglobin 11.5 g/dL (13.0-18.0); Mean Corp Hgb Conc. 35.5 g/dL (33.0-37.0); Mean Corpuscular Hgb 29.7 pg (27.0-31.0); Mean Corpuscular Volume 83.7 fL (80.0-94.0); Mean Platelet Volume 11.3 fL (7.4-10.4); Platelet Count 147 10^3/uL (130-400); Red Blood Cell Count 3.87 10^6/uL (4.70-6.10); White Blood Cell Count 6.5 10^3/uL (4.8-10.8)
[2023-10-17] MEDS: NOVOLOG FLEXPEN 10 UNITS SC ×4 (03:00→17:01)
[2023-10-17 03:08] LABS: Blood Urea Nitrogen 38 mg/dl (9-20); Carbon Dioxide 19 mmol/L (22-30); Chloride 100 mmol/L (98-107); Estimated Creatinine Clearance 95 ml/min; Glucose 295 mg/dl (70-99); Phosphorus 2.6 mg/dl (2.5-4.5); Potassium 3.8 mmol/L (3.5-5.1); Sodium 126 mmol/L (135-145); eGFR > 60.00
[2023-10-17 05:11] LABS: Glucose - Point of Care 299 mg/dl (70-99)
[2023-10-17 05:24] VITALS: BMI 40.8
--- NOTE | 2023-10-17 07:02 | W.PN.HOSP.TC ---
Addendum entered and electronically signed by Noel Dye MD 10/18/23 07:07:
brief cardiogenic shock following stemi stent placement since resolved
Original Note:
Today's Communication/Plan
-
asa plavix as per cardio
glycemic control as per Diabetes SOLVENT STATION ATTENDANT
prn ativan as per psych
Assessment / Plan
Assessment / Plan
Physical Exam
General: No pallor, cyanosis, or jaundice.
HEENT: Throat clear. PERRLA Normocephalic atraumatic
NECK: Supple. No JVD Carotid Bruits
RESPIRATORY: Lungs clear to auscultation. No crackles wheezes stridor
CVS: Tachycardia
ABDOMEN: Soft, non-tender. No distension. BS+/normal.
EXTREMITIES: No peripheral cyanosis or edema.
STILL WORKER HELPER: AOx3. No focal deficits.
IMPRESSION:
53M morbid obesity former smoker (quit 1 month ago) COVID infection 1 month ago p/w with progressive chest pain exertional dyspnea for past 2 weeks described as burning left sided occasionally radiating to right- prompted by to visit ED when
pain became significantly debilitating limiting ambulation.� Occasionally use cane for ambulation due to past knee surgery.� ED evaluation was significant for STEMI, troponin elevation 0.083, DKA anion gap 22 with sugar 723,� pseudohyponatremia 123
corrected for hyperglycemia 130s.� Taken urgently to cleaning laborer LAD stent was placed with subsequent resolution of symptoms, chest pain and dyspnea.� Denies nausea vomiting.� Tachycardia otherwise VSS.
PLAN:
#STEMI (correction to prior documentation)
#HOCM
#possible hx pAfib
Cardio eval appreciated status post cath with LAD stent placement 10/15
Continue statin DAPT (aspirin and Brilinta) as per Cardio, possible triple therapy if hx pafib confirmed with patient's outpatient yard loader operator
Brillinta later switched to plavix as cost is prohibitive
ECHO noted mod to severe concentric left ventricular hypertrophy EF>75% consistent with HOCM
low dose metoprolol started as per cardio
Troponin trended to peak 0.157 since trended down
Currently Chest pain free
#Diabetes
#DKA
#Pseudohyponatremia, sodium relatively within normal limits when corrected for hyperglycemia
#Possible TRAMAINE versus CKD initial creatinine 1.6 unknown baseline
ICU admit
downgraded to IVU 10/16 with resolution DKA
Food And Drug Research Scientist eval appreciated
Follow-up A1c >18.5
Insulin GTT transitioned to SubQ following closing of anion gap
IV fluid supplementation since discontinued with diet resumed tolerating well
Diabetes SOLVENT STATION ATTENDANT consult appreciated Novolog premeal increased from 5U to 10U premeal, cont medium dose sliding scale, 20U lantus bedtime
#adjustment d/o anxiety depression
Psych eval appreciated prn PO ativan started
#Morbid obesity
DVT prophylaxis heparin
GI prophylaxis Protonix
Full code
I spent a total of 55� � minutes with the patient or on the floor. More than 50% of this time involved counseling and coordination of care.
Anticipated Discharge: 24 - 48 hours
Subjective/Interval History
-
Date of Service: October 17, 2023
No acute distress ambulating without issues. Later in the day patient reporting feeling overwhelmed with regards to medical issues diagnoses. Psych eval subsequently requested as per pt's request.
Objective Data
-
Labs:
Laboratory Results
10/17/23
02:34
WBC 6.5
Hgb 11.5 L
Hct 32.4 L
Plt Count 147 D
Sodium 126 L
Potassium 3.8
Chloride 100
Carbon Dioxide 19 L
BUN 38 H
Creatinine 1.2
Glucose 295 H
Calcium 8.0 L
Vital Signs:
Vital Signs
Temp Pulse Resp BP Pulse Ox
97.8 F 83 18 116/64 96
10/17/23 02:25 10/17/23 02:25 10/17/23 02:25 10/17/23 02:25 10/17/23 02:25
I&O
10/16/23 10/17/23 10/18/23
06:59 06:59 06:59
Intake Total 3129.0 / 3298.0 8.0 / 8.0
Output Total 1250 / 1250 800 / 800
Balance 1879.0 / 2047.0 1228.0 / 1228.0
--- NOTE | 2023-10-17 07:39 | PTCARENOTE ---
Telemetry captured for previous shift via [email or web address].
--- NOTE | 2023-10-17 07:42 | PN.DE.MGMTRT ---
Insulin Management
- -
10/17/2023: Diabetes Management Consult
53 year old male p/w progressive chest pain exertional dyspnea for past 2 weeks, admitted on 10/14 with STEMI.
PMH includes: HTN, A-Fib, Morbid obesity, former smoker (quit 1 month ago) COVID infection 1 month ago.
A1C was >18.5%, Cr 1.-->1.2 today. Glucose on admission was 723, has remained elevated, FBG 295 this AM, premeal has trended up to 490.
Current diabetes regimen includes:AC NovoLog 5 units and Lantus 10 units has been increased to [address] Dye
Will increase AC NovoLog to 10 units. Cont moderate corrective and Lantus 20 units, 1st dose tonight.
Will follow and make further adjustment if necessary as A1C >18.5%
Diabetes History
- -
Type of Diabetes: 2 requiring insulin
Pre-Admission Diabetes Regimen
10/16/23 10/17/23
12:00 02:34
Creatinine Cancelled 1.2
Lab Results
Hemoglobin A1c > 18.5 % (4.0-5.6) H 10/15/23 13:00
Insulin Pump Settings
IP Diabetes Regimen
10/16/23 10/16/23 10/16/23
08:03 09:02 10:04
Glucose
POC Glucose 264 H 313 H 326 H
10/16/23 10/16/23 10/16/23
11:46 12:00 16:48
Glucose Cancelled
POC Glucose 302 H 490 H*
10/16/23 10/16/23 10/17/23
17:05 23:05 02:21
Glucose 443 H
POC Glucose 381 H 329 H
10/17/23 10/17/23
02:34 05:09
Glucose 295 H
POC Glucose 299 H
Meal type: Lunch
Amount consumed: 100%
Patient Education
--- NOTE | 2023-10-17 07:44 | W.PN.CD ---
Today's Communication / Plan
-
low dos e BB
tx of hyponatremai per primaryt team
follow up echo fro addtional imaging of aortic valve and reasessment of gradients
Impression / Plan
-
53-year-old male (primarily known to Dr. Taylor) with paroxysmal atrial fibrillation (recently prescribed Eliquis, but patient has not began taking), hypertension, chronic cigarette use (approximately one half PPD since age 11; quit 1 month ago
after marisol COVID), and obesity admitted with a STEMI.
CAD/STEMI:
-Successful HOLGER to mid LAD yesterday (10/15/2023).
-Continue aspirin/Brilinta.
-Continue rosuvastatin 40 mg daily.
Elevated transaortic gradient by cath:
- Suspected HOCM by echo
-Echocardiographic report HOCM, moderate to severe concentric LVH, and hyperdynamic LV function with LVEF >75%. Elevated gradient noted. challenging to view aortic leaflets which appear to be opening. Subvalvular stenosis can not be excluded Would
consider repeat echo and could consider addional imaging including DELANEY/CT TAVR and/or MRI ( to evaluate aortic valve and LVOT)
-Will try to initiate Toprol-XL (starting at 25 mg daily) as blood pressure improves; will reevaluate tomorrow.
-avoid volume depletion.
- consider repeat echo after medical therapy optimized
DKA:
-Management as per primary team.
Hyponatremia - 126 - tx per primary team
.
AK creatinine improving and down to 1.2
PAF:
-Patient never initiated Eliquis as an outpatient.
-Obtain records for primary Chassis Mechanic if it is confirmed that patient has PAF, then triple therapy is recommended for 1 week by Interventional Cardiology and then Eliquis with Brilinta (or Plavix)--patient is currently in sinus rhythm.
Hypertension:
-Will optimize medications prior to discharge.
Chronic smoker.
-Should continue to refrain from tobacco use.
Obesity:
-Aggressive weight loss and regular exercise recommended.
Physical Exam
Vital Signs/Labs
Vital Signs
Temp Pulse Resp BP Pulse Ox
97.8 F 82 18 116/64 96
10/17/23 02:25 10/17/23 06:00 10/17/23 02:25 10/17/23 02:25 10/17/23 02:25
10/16/23 10/17/23 10/18/23
06:59 06:59 06:59
Actual Weight 129.1 kg 132.5 kg
10/17/23 02:34
10/17/23 02:34
PT 14.0 Sec (11.4-14.6) 10/16/23 05:33
INR 1.09 10/16/23 05:33
APTT 27.0 Sec (23.4-35.0) 10/16/23 05:33
Magnesium 2.0 mg/dl (1.6-2.3) 10/17/23 02:34
LAB Results
10/15/23 10/15/23 10/15/23
10:40 13:00 18:12
Troponin I 0.083 H* 0.081 H* 0.134 H* D
10/16/23 10/16/23
01:34 17:05
Troponin I 0.157 H* 0.152 H*
Physical Exam
Constitutional: No acute distress
Cardiovascular: Rhythm & rate is regular and Systolic murmur present
Respiratory: Respiratory effort normal
GI: Soft
Neuro/Psych: Alert
Other: Skin
Data Reviewed
-
Date of Service: October 17, 2023
Echo: Tracing Personally Visualized and interpreted and Report Reviewed by me
Medical Tests (PFT, Pathology etc): Report Reviewed by me
Labs: Labs Reviewed by me
[2023-10-17 08:20] VITALS: BP 142/82
[2023-10-17 08:25] LABS: Glucose - Point of Care 271 mg/dl (70-99)
[2023-10-17] MEDS: BRILINTA 90 MG PO ×2 (09:11→21:16)
[2023-10-17] MEDS: PROTONIX 40 MG PO (09:11)
[2023-10-17] MEDS: LOW STRENGTH ASPIRIN 81 MG PO (09:11)
[2023-10-17] MEDS: HEPARIN 5000 UNITS SC ×3 (09:12→23:18)
[2023-10-17] MEDS: NOVOLOG FLEXPEN-MODERATE RESISTANCE 5 UNITS SC (09:13)
[2023-10-17] MEDS: NOVOLOG FLEXPEN SC (09:26)
--- NOTE | 2023-10-17 12:14 | CM ---
Chart reviewed. Patient is independent of ADLS, lives with his in a split level home, [address], ambulates with a SPC. Patient currently with no discharge needs. Plan is for the patient to return home. CM to follow
[2023-10-17 12:34] VITALS: BP 100/76
--- NOTE | 2023-10-17 12:41 | PTCARENOTE ---
VS obtained, stable. Patient had questions regarding recent diagnoses, answered to best of this RN's ability, emotional support provided.
[2023-10-17 12:44] LABS: Glucose - Point of Care 361 mg/dl (70-99)
--- NOTE | 2023-10-17 13:08 | CM ---
Pricing on Brilinta, the patient does not have a prescription plan. He only uses discount cards for his medications. The Brilinta coupon will only pay $100 towards cost.
[2023-10-17] MEDS: NOVOLOG FLEXPEN-MODERATE RESISTANCE 9 UNITS SC (13:12)
--- NOTE | 2023-10-17 14:07 | PN.CDI ---
CDI
- -
CDI:
Physician Documentation Request
Admit Date: 10/15/23 12:49
Dear Doctor Marnie,
Patient admitted with STEMI.
10/15 PCN: 'Blood pressure hypotensive 70s/40s. Nurse Practitioner made aware. 250ml NSS bolus ordered and given.'
10/16 PCN: 'Pt. currently on levophed gtt to maintain MAP >65.'
Please clarify which of the following is the most likely etiology of the above symptoms and treatment rendered:
Cardiogenic shock
Shock, unknown type
Hypotension
Other
Use of terms such as suspected, likely, concern for, or probable (associated with a specific diagnosis that is being evaluated, monitored, or treated as if it exists) are acceptable and can be coded in the inpatient setting, when documented at the
time of discharge.
Thank you,
Isabel Norton RN, BSN
CDI Specialist
Available via [employer] text
Please use your independent medical judgment in providing your response.
[2023-10-17 15:10] VITALS: BP 115/99
--- NOTE | 2023-10-17 15:57 | CS.PSYCHR ---
Consult Summary - Psychiatry
-
Pt is a 53 yo male, admitted with STEMI, S/P Cardiac cath with LAD stent placed 10/15/23. Psychiatry asked to see due to anxiety, feeling overwhelmed with medical diagnoses. Pt noted feeling better overall, less anxious after moved form ICU. Pt
reports he has been unable to work since out due to injury on the job in 2018. Pt states he stays around the house, feeling useless, like a 'lump,' overeats. Pt does not exercise due to 'bad knee and bad back'. He reports he stopped smoking
cigarettes and drinking beer for the new year. He complains of financial strain, trying to pay the bills on 's income alone, c/o insurance barriers to care, including outpatient counseling. Pt reports he applied for SSD, has been turned down
thus far. PMDP search shows PCP has prescribed Ativan 1 mg periodically, last filled on 08/09/23 #60 tabs. EKG 10/16 shows QTc 466; Sodium today 126, was low on admission.
PMH: CAD, STEMI as above, possible parox Afib, HOCM, HTN, obesity, DM, BRODIE- pt tried CPAP for about 6 months, had difficulty adapting/felt suffocated
Pt reports hx of rotator cuff injury and surgery
Psych Hx: denied, other than anxiety med from PCP- taken as needed
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 Lives with . Recently quit cigarette and beer use, denies problematic drinking
MSE: alert, oriented, calm, cooperative, pleasant. Speech coherent, thought goal-directed. Mood mildly dysphoric, mildly anxious. Denies SI. No agitation. No signs of psychosis. Insight fair to limited.
Imp: Adjustment d/o with anxiety/ depression- mild.
Rec: Outpatient therapy; pt was given the card for [facility].
Will order prn Ativan 0.5 mg- would limit the dose. I would not recommend starting any other psychotropic med for now, given medical status and potential risks
Will follow
--- NOTE | 2023-10-17 16:42 | PN.DE ---
Diabetes Education
- -
Diabetes Education-
53 year old male with new T2DM diagnosis, A1C of >18.5%, glucose was 723 on admission. Met with Mr. Freeman at bedside for monitor and insulin instructions. He has been provided with the Contour Next Ez glucometer. Reviewed proper testing technique
for obtaining a blood glucose, new testing pattern given ACHS and expected results as noted in take home education booklet. Discussed action of both rapid acting and long acting insulins as well as symptoms and treatment of hypoglycemia. Aware for
meals to check blood glucose, inject NovoLog (short acting insulin) in stomach and eat in 10-20 minutes and Long acting insulin in outer thigh, rotating sites. Aware to store insulin pens that are not in use in the refrigerator. Instructions with
good return demonstration using the glucometer and insulin pen were noted and result of 298 mg/dl 2 hrs after breakfast. Discussed importance of checking blood sugars 4x/day to assess food/medication effect on his BS, reducing CHO intake, being
active and losing weight. Provided information and handout on outpt education classes, states he is not sure if he will be able to attend if too high of cost, explained to pt that insurance may cover with a copay.
Pt will need RX for test strips and lancets for the Contour Next Ez glucometer, testing 4x/day, NovoLog and Lantus as well as pen needles at discharge.
All questions and concerns were addressed and answered to his satisfaction.
[2023-10-17] MEDS: CRESTOR 40 MG PO (16:58)
[2023-10-17] MEDS: NOVOLOG FLEXPEN-MODERATE RESISTANCE 7 UNITS SC (17:01)
[2023-10-17 17:03] LABS: Glucose - Point of Care 316 mg/dl (70-99)
[2023-10-17 19:09] VITALS: BP 103/77
--- NOTE | 2023-10-17 20:15 | PTCARENOTE ---
assumed care of pt from previous RN. pt A&Ox4, denies any pain at this time. SR on tele-monitor, HR 70s-80s. POX 96% on RA. pt c/o ARELLANO. PIV x2 intact. see worklist for complete nursing assessment, interventions, VS, and I&Os.
[2023-10-17] MEDS: TOPROL XL 12.5 MG PO (21:15)
[2023-10-17] MEDS: LANTUS 0.200000000000000011 UNITS SC (21:16)
[2023-10-17 21:18] LABS: Glucose - Point of Care 296 mg/dl (70-99)
[2023-10-17 23:19] VITALS: BP 136/88
[2023-10-18] VITALS (10 sets, daily range): BP systolic 119–149; BP diastolic 61–127; BMI 40.6
[2023-10-18 04:00] LABS: Hematocrit 35.2 % (39.0-52.0); Hemoglobin 12.5 g/dL (13.0-18.0); Mean Corp Hgb Conc. 35.5 g/dL (33.0-37.0); Mean Corpuscular Hgb 29.1 pg (27.0-31.0); Mean Corpuscular Volume 82.1 fL (80.0-94.0); Mean Platelet Volume 11.6 fL (7.4-10.4); Platelet Count 177 10^3/uL (130-400); Red Blood Cell Count 4.29 10^6/uL (4.70-6.10); Red Cell Dist. Width 13.8 % (11.5-14.5); White Blood Cell Count 6.6 10^3/uL (4.8-10.8)
[2023-10-18 04:22] LABS: Blood Urea Nitrogen 28 mg/dl (9-20); Calcium 8.6 mg/dl (8.4-10.2); Carbon Dioxide 19 mmol/L (22-30); Chloride 100 mmol/L (98-107); Estimated Creatinine Clearance 116 ml/min; Glucose 244 mg/dl (70-99); Magnesium 1.9 mg/dl (1.6-2.3); Phosphorus 3.6 mg/dl (2.5-4.5); Potassium 4.1 mmol/L (3.5-5.1); Sodium 129 mmol/L (135-145); eGFR > 60.00
[2023-10-18 06:53] LABS: Glucose - Point of Care 280 mg/dl (70-99)
--- NOTE | 2023-10-18 07:07 | W.PN.HOSP.TC ---
Today's Communication/Plan
-
optimization cardiac medications as per cardio
cont glycemic control as per Diabetes STENOTYPIST
discharge planning home with outpatient follow up cardiac rehab
Assessment / Plan
Assessment / Plan
Physical Exam
General: No pallor, cyanosis, or jaundice.
HEENT: Throat clear. PERRLA Normocephalic atraumatic
NECK: Supple. No JVD Carotid Bruits
RESPIRATORY: Lungs clear to auscultation. No crackles wheezes stridor
CVS: Tachycardia
ABDOMEN: Soft, non-tender. No distension. BS+/normal.
EXTREMITIES: No peripheral cyanosis or edema.
OPERATING ROOM NURSE: AOx3. No focal deficits.
IMPRESSION:
53M morbid obesity former smoker (quit 1 month ago) COVID infection 1 month ago p/w with progressive chest pain exertional dyspnea for past 2 weeks described as burning left sided occasionally radiating to right- prompted by to visit ED when
pain became significantly debilitating limiting ambulation.� Occasionally use cane for ambulation due to past knee surgery.� ED evaluation was significant for STEMI, troponin elevation 0.083, DKA anion gap 22 with sugar 723,� pseudohyponatremia 123
corrected for hyperglycemia 130s.� Taken urgently to quality lab technician LAD stent was placed with subsequent resolution of symptoms, chest pain and dyspnea.� Denies nausea vomiting.� Tachycardia otherwise VSS.
PLAN:
#STEMI
#brief cardiogenic shock following stemi stent placement requiring pressor since resolved
#HOCM
#possible hx pAfib
Cardio eval appreciated status post cath with LAD stent placement 10/15
Continue statin DAPT (aspirin and Brilinta) as per Cardio, possible triple therapy if hx pafib confirmed with patient's outpatient software deployment engineer
Brillinta later switched to plavix as cost is prohibitive
ECHO noted mod to severe concentric left ventricular hypertrophy EF>75% consistent with HOCM
low dose metoprolol started as per cardio
Troponin trended to peak 0.157 since trended down
Currently Chest pain free
#Diabetes
#DKA
#Pseudohyponatremia, sodium relatively within normal limits when corrected for hyperglycemia
#Possible TRAMAINE versus CKD initial creatinine 1.6 unknown baseline
ICU admit
downgraded to IVU 10/16 with resolution DKA
Superintendent [employer] eval appreciated
Follow-up A1c >18.5
Insulin GTT transitioned to SubQ following closing of anion gap
IV fluid supplementation since discontinued with diet resumed tolerating well
cont insulin as per Diabetes STENOTYPIST
#adjustment d/o anxiety depression
Psych eval appreciated cont prn PO ativan
#Morbid obesity
DVT prophylaxis heparin
GI prophylaxis Protonix
Full code
I spent a total of 55� � minutes with the patient or on the floor. More than 50% of this time involved counseling and coordination of care.
Anticipated Discharge: 24 - 48 hours
Subjective/Interval History
-
Date of Service: October 18, 2023
No acute distress. Comfortable at this time. Ambulating without issues. Nancy present during evaluation.
Objective Data
-
Labs:
Laboratory Results
10/18/23
03:20
WBC 6.6
Hgb 12.5 L
Hct 35.2 L
Plt Count 177 D
Sodium 129 L
Potassium 4.1
Chloride 100
Carbon Dioxide 19 L
BUN 28 H
Creatinine 1.0
Glucose 244 H
Calcium 8.6
Vital Signs:
Vital Signs
Temp Pulse Resp BP Pulse Ox
97.4 F 80 16 133/90 98
10/18/23 06:40 10/18/23 06:40 10/18/23 06:40 10/18/23 02:47 10/18/23 06:40
I&O
10/17/23 10/18/23 10/19/23
06:59 06:59 06:59
Intake Total 2027.0 / 2027.0 720 / 720
Output Total 800 / 800
Balance 1228.0 / 1228.0 720 / 720
[2023-10-18] MEDS: NOVOLOG FLEXPEN-MODERATE RESISTANCE 5 UNITS SC ×2 (07:35→18:14)
[2023-10-18] MEDS: NOVOLOG FLEXPEN 10 UNITS SC (07:36)
--- NOTE | 2023-10-18 08:03 | W.PN.CD ---
Today's Communication / Plan
-
continued titrattion of beta ablocker
monitor on telemetry
Impression / Plan
-
53-year-old male (primarily known to Dr. Taylor) with paroxysmal atrial fibrillation (recently prescribed Eliquis, but patient has not began taking), hypertension, chronic cigarette use (approximately one half PPD since age 11; quit 1 month ago
after marisol COVID), and obesity admitted with a STEMI.
CAD/STEMI:
-Successful HOLGER to mid LAD yesterday (10/15/2023).
-Continue aspirin/Brilinta.
-Continue rosuvastatin 40 mg daily.
HOCM
- Elevated transaortic gradient by cath:
- Suspected HOCM by echo
-Echocardiographic report HOCM, moderate to severe concentric LVH, and hyperdynamic LV function with LVEF >75%. Elevated gradient noted. Inititla study with limited views of aortic leaflets but follow up study suggests adequate opening iwthout
significant . Peak gradient
-tolerating llow dose beta pilar . will continue to titrate
-
NSVT - 5 beats 2/5 - prior to start of beta pilar
- titrate beta pilar
DKA:
-Management as per primary team.
Hyponatremia - 126 - tx per primary team
.
AK creatinine improving and down to 1.2
PAF:
-Patient never initiated Eliquis as an outpatient.
-Obtain records for primary Any Commodity Buyer if it is confirmed that patient has PAF, then triple therapy is recommended for 1 week by Interventional Cardiology and then Eliquis with Brilinta (or Plavix)--patient is currently in sinus rhythm.
Hypertension:
-Will optimize medications prior to discharge.
Chronic smoker.
-Should continue to refrain from tobacco use.
Obesity:
-Aggressive weight loss and regular exercise recommended.
Physical Exam
Vital Signs/Labs
Vital Signs
Temp Pulse Resp BP Pulse Ox
97.4 F 80 16 133/90 98
10/18/23 06:40 10/18/23 06:40 10/18/23 06:40 10/18/23 02:47 10/18/23 06:40
10/17/23 10/18/23 10/19/23
06:59 06:59 06:59
Actual Weight 132.5 kg 132.1 kg
10/18/23 03:20
10/18/23 03:20
PT 14.0 Sec (11.4-14.6) 10/16/23 05:33
INR 1.09 10/16/23 05:33
APTT 27.0 Sec (23.4-35.0) 10/16/23 05:33
Magnesium 1.9 mg/dl (1.6-2.3) 10/18/23 03:20
LAB Results
10/15/23 10/15/23 10/15/23
10:40 13:00 18:12
Troponin I 0.083 H* 0.081 H* 0.134 H* D
10/16/23 10/16/23
01:34 17:05
Troponin I 0.157 H* 0.152 H*
Physical Exam
Constitutional: No acute distress
Cardiovascular: Rhythm & rate is regular
Respiratory: Respiratory effort normal
GI: Soft
Neuro/Psych: Alert
Data Reviewed
-
Date of Service: October 18, 2023
Medical Decision Making: External Notes
Echo: Tracing Personally Visualized and interpreted
Medical Tests (PFT, Pathology etc): Report Reviewed by me
Labs: Labs Reviewed by me
--- NOTE | 2023-10-18 08:21 | W.PN.CD ---
Today's Communication / Plan
-
titrate metorpolol ( changed to lopressor for titration purposes)
Impression / Plan
-
53-year-old male (primarily known to Dr. Taylor) with paroxysmal atrial fibrillation (recently prescribed Eliquis, but patient has not began taking), hypertension, chronic cigarette use (approximately one half PPD since age 11; quit 1 month ago
after marisol COVID), and obesity admitted with a STEMI.
CAD/STEMI:
-Successful HOLGER to mid LAD yesterday (10/15/2023).
-Continue aspirin/Brilinta.
-Continue rosuvastatin 40 mg daily.
HOCM
- Elevated transaortic gradient by cath:
- Suspected HOCM by echo
-Echocardiographic report HOCM, moderate to severe concentric LVH, and hyperdynamic LV function with LVEF >75%. Elevated gradient noted. Inititla study with limited views of aortic leaflets but follow up study suggests adequate opening iwthout
significant . Peak gradient
-tolerating llow dose beta pilar . will continue to titrate
-
NSVT - 5 beats 2/5 - prior to start of beta pilar
- titrate beta pilar
DKA:
-Management as per primary team.
Hyponatremia - 126 - tx per primary team
.
AK creatinine improving and down to 1.2
PAF:
-Patient never initiated Eliquis as an outpatient.
-Obtain records for primary Instrumentation Chemist if it is confirmed that patient has PAF, then triple therapy is recommended for 1 week by Interventional Cardiology and then Eliquis with Brilinta (or Plavix)--patient is currently in sinus rhythm.
Hypertension:
-Will optimize medications prior to discharge.
Chronic smoker.
-Should continue to refrain from tobacco use.
Obesity:
-Aggressive weight loss and regular exercise recommended.
Physical Exam
Vital Signs/Labs
Vital Signs
Temp Pulse Resp BP Pulse Ox
97.4 F 77 16 137/86 98
10/18/23 06:40 10/18/23 08:00 10/18/23 06:40 10/18/23 06:43 10/18/23 06:40
10/17/23 10/18/23 10/19/23
06:59 06:59 06:59
Actual Weight 132.5 kg 132.1 kg
10/18/23 03:20
10/18/23 03:20
PT 14.0 Sec (11.4-14.6) 10/16/23 05:33
INR 1.09 10/16/23 05:33
APTT 27.0 Sec (23.4-35.0) 10/16/23 05:33
Magnesium 1.9 mg/dl (1.6-2.3) 10/18/23 03:20
LAB Results
10/15/23 10/15/23 10/15/23
10:40 13:00 18:12
Troponin I 0.083 H* 0.081 H* 0.134 H* D
10/16/23 10/16/23
01:34 17:05
Troponin I 0.157 H* 0.152 H*
Physical Exam
Constitutional: No acute distress
EENT: Anicteric
Cardiovascular: Rhythm & rate is regular and Systolic murmur present
Respiratory: Respiratory effort normal
GI: Soft
Neuro/Psych: Alert
Data Reviewed
-
Date of Service: October 18, 2023
Medical Decision Making: Reviewed Test Results
EKG: Report Reviewed by me
Echo: Report Reviewed by me
Labs: Labs Reviewed by me
[2023-10-18] MEDS: HEPARIN 5000 UNITS SC ×3 (10:02→23:55)
[2023-10-18] MEDS: PLAVIX 600 MG PO (10:02)
[2023-10-18] MEDS: LOW STRENGTH ASPIRIN 81 MG PO (10:03)
[2023-10-18] MEDS: PROTONIX 40 MG PO (10:03)
[2023-10-18] MEDS: ATIVAN 0.5 MG PO (10:03)
[2023-10-18] MEDS: TOPROL XL 12.5 MG PO (10:03)
--- NOTE | 2023-10-18 10:39 | PN.DE.MGMTRT ---
Insulin Management
- -
-: -:
10/17/2023: Diabetes Management Consult
53 year old male p/w progressive chest pain exertional dyspnea for past 2 weeks, admitted on 10/14 with STEMI.
PMH includes: HTN, A-Fib, Morbid obesity, former smoker (quit 1 month ago) COVID infection 1 month ago.
A1C was >18.5%, Cr 1.-->1.2 today. Glucose on admission was 723, has remained elevated, FBG 295 this AM, premeal has trended up to 490.
Current diabetes regimen includes:AC NovoLog 5 units and Lantus 10 units has been increased to [address] Dye
Will increase AC NovoLog to 10 units. Cont moderate corrective and Lantus 20 units, 1st dose tonight.
Will follow and make further adjustment if necessary as A1C >18.5%
10/18/2023 Diabetes Management Follow up
Patient states he has been told he was borderline for diabetes but was never started on medication. Discussed with CM patient has no prescription plan. Lantus and novolog will be too expensive. Had hoped to start jardiance, farxiga or Trulicity
but due to cost will not. Will need to change insulin to 70/30 BID so he only has to purchase only one type. Will start 70/30 30 units BID first dose with dinner. Will also start metformin 500 mg BID first dose with dinner. Will check 3am
glucose.
Diabetes History
- -
Type of Diabetes: 2 requiring insulin
Pre-Admission Diabetes Regimen
10/18/23
03:20
Creatinine 1.0
Lab Results
Hemoglobin A1c > 18.5 % (4.0-5.6) H 10/15/23 13:00
Insulin Pump Settings
IP Diabetes Regimen
10/17/23 10/17/23 10/17/23
12:34 17:00 21:17
Glucose
POC Glucose 361 H 316 H 296 H
10/18/23 10/18/23
03:20 06:52
Glucose 244 H
POC Glucose 280 H
Patient Education
--- NOTE | 2023-10-18 10:58 | W.PN.UPDATE ---
Update Note
Progress Note Update
Pt seen, reports he became more anxious this morning after visit by Guest Services Associate, states difficulty understanding all the medical information, tends to get overwhelmed. Pt feeling better after talking with his , states he is trying to focus on
'now' and not think too much into the future. Pt was given Ativan 0.5 mg at 10 am, with benefit. Pt alert, oriented, pleasant, cooperative. Mood overall stable, affect appropriate.
Imp: Adjustment d/o with anxiety; medical/financial/disability stressors
Rec:� Outpatient therapy; possibly at [facility], depending on insurance plan.
� � � Would continue Ativan 0.5 mg on prn basis, with a limited Rx at discharge.� Do not recommend starting any other psychotropic med for now, given medical status/ potential risks. Will continue to follow here at
--- NOTE | 2023-10-18 11:30 | PTCARENOTE ---
Diabetes Education- Follow up education for glucometer and insulin pen. Chester engaged in education. He required me to go over steps of glucometer prior to return demonstration. Once verbal instructions given, he was able to return demonstrate well,
result 308 mg/dl,pre lunch. Discussed onset, peak and duration of both rapid acting and long acting insulins as well as symptoms and treatment of hypoglycemia. Instructions with good return demonstration x2 using insulin pen. aware to eat meal,
inject insulin and eat in 15 minutes. Aware to inject rapid acting in abdomen and long acting in outer thigh. Numerous questions answered. handout to keep track of BS/insulin injected given to help with organization. Very interested in outpt DSME
classes. Updates to Ashley RN with suggestion to have him self inject using the take home pen needles.
[2023-10-18 12:07] LABS: Glucose - Point of Care 315 mg/dl (70-99)
[2023-10-18] MEDS: NOVOLOG FLEXPEN-MODERATE RESISTANCE 7 UNITS SC (14:13)
[2023-10-18 17:45] LABS: Glucose - Point of Care 286 mg/dl (70-99)
[2023-10-18] MEDS: CRESTOR 40 MG PO (18:14)
[2023-10-18] MEDS: GLUCOPHAGE 500 MG PO (18:14)
[2023-10-18] MEDS: LOPRESSOR 25 MG PO ×2 (19:05→23:56)
[2023-10-18] MEDS: NOVOLOG MIX 70/30 FLEXPEN 30 UNITS SC (19:06)
[2023-10-18 21:31] LABS: Glucose - Point of Care 320 mg/dl (70-99)
[2023-10-19] VITALS (9 sets, daily range): BP systolic 117–164; BP diastolic 79–106; BMI 40.2
[2023-10-19 03:00] LABS: Glucose - Point of Care 168 mg/dl (70-99)
[2023-10-19 04:14] LABS: Hematocrit 34.1 % (39.0-52.0); Hemoglobin 11.7 g/dL (13.0-18.0); Mean Corp Hgb Conc. 34.3 g/dL (33.0-37.0); Mean Corpuscular Volume 84.6 fL (80.0-94.0); Mean Platelet Volume 12.4 fL (7.4-10.4); Platelet Count 162 10^3/uL (130-400); Red Blood Cell Count 4.03 10^6/uL (4.70-6.10); Red Cell Dist. Width 13.9 % (11.5-14.5); White Blood Cell Count 5.2 10^3/uL (4.8-10.8)
--- NOTE | 2023-10-19 04:42 | PTCARENOTE ---
0300 AccuCheck 168. NSR on the monitor with PVC's (4 beat run VT at 0333, asymptomatic), rate 60's-70's at rest, 110's with activity. No complaints of pain. Pt. sleeping on & off throughout night.
[2023-10-19 04:56] LABS: Blood Urea Nitrogen 16 mg/dl (9-20); Calcium 8.6 mg/dl (8.4-10.2); Carbon Dioxide 23 mmol/L (22-30); Chloride 104 mmol/L (98-107); Estimated Creatinine Clearance > 125 ml/min; Glucose 154 mg/dl (70-99); Phosphorus 3.7 mg/dl (2.5-4.5); Potassium 3.8 mmol/L (3.5-5.1); Sodium 134 mmol/L (135-145); eGFR > 60.00
[2023-10-19] MEDS: LOPRESSOR 25 MG PO (06:23)
[2023-10-19 07:19] LABS: Glucose - Point of Care 177 mg/dl (70-99)
--- NOTE | 2023-10-19 07:27 | W.PN.HOSP.TC ---
Today's Communication/Plan
-
glycemic control
metoprolol as per cardiology
prn ativan
discharge planning eventual home with outpatient cardiac rehab
Assessment / Plan
Assessment / Plan
Physical Exam
General: No pallor, cyanosis, or jaundice.
HEENT: Throat clear. PERRLA Normocephalic atraumatic
NECK: Supple. No JVD Carotid Bruits
RESPIRATORY: Lungs clear to auscultation. No crackles wheezes stridor
CVS: S1 S2 NSR
ABDOMEN: Soft, non-tender. No distension. BS+/normal.
EXTREMITIES: No peripheral cyanosis or edema.
TEST ENGINEERING MANAGER: AOx3. No focal deficits.
IMPRESSION:
53M morbid obesity former smoker (quit 1 month ago) COVID infection 1 month ago p/w with progressive chest pain exertional dyspnea for past 2 weeks described as burning left sided occasionally radiating to right- prompted by to visit ED when
pain became significantly debilitating limiting ambulation.� Occasionally use cane for ambulation due to past knee surgery.� ED evaluation was significant for STEMI, troponin elevation 0.083, DKA anion gap 22 with sugar 723,� pseudohyponatremia 123
corrected for hyperglycemia 130s.� Taken urgently to electronic lab technician LAD stent was placed with subsequent resolution of symptoms, chest pain and dyspnea.� Denies nausea vomiting.� Tachycardia otherwise VSS.
PLAN:
#STEMI
#brief cardiogenic shock following stemi stent placement requiring pressor since resolved
#HOCM
#possible hx pAfib
Cardio eval appreciated status post cath with LAD stent placement 10/15
Continue statin DAPT (aspirin and Brilinta) as per Cardio, possible triple therapy if hx pafib confirmed with patient's outpatient erp pm
Brillinta later switched to plavix as cost is prohibitive
ECHO noted mod to severe concentric left ventricular hypertrophy EF>75% consistent with HOCM
low dose metoprolol started as per cardio titrated up to 50 mg BID
Troponin trended to peak 0.157 since trended down
Currently Chest pain free, consistently NSR throughout stay as noted on telemetry
#Diabetes
#DKA
#Pseudohyponatremia, sodium relatively within normal limits when corrected for hyperglycemia
#Possible TRAMAINE versus CKD initial creatinine 1.6 unknown baseline
ICU admit
downgraded to IVU 10/16 with resolution DKA
Candy Wrapping Machine Operator eval appreciated
Follow-up A1c >18.5
Insulin GTT transitioned to SubQ following closing of anion gap
IV fluid supplementation since discontinued with diet resumed tolerating well
cont insulin as per Diabetes DISPUTE COORDINATOR, consult appreciated, glycemic control optimized at this time
#adjustment d/o anxiety depression
Psych eval appreciated cont prn PO ativan
#Morbid obesity
DVT prophylaxis heparin
GI prophylaxis Protonix
Full code
I spent a total of 55� � minutes with the patient or on the floor. More than 50% of this time involved counseling and coordination of care.
Anticipated Discharge: 24 - 48 hours
Subjective/Interval History
-
Date of Service: October 19, 2023
No acute distress. Reports some shortness of breath following ambulation but resolving with rest. Denies chest pain palpitations. Overall reports feeling well.
Objective Data
-
Labs:
Laboratory Results
10/19/23
03:21
WBC 5.2
Hgb 11.7 L
Hct 34.1 L
Plt Count 162
Sodium 134 L
Potassium 3.8
Chloride 104
Carbon Dioxide 23
BUN 16
Creatinine 0.9
Glucose 154 H
Calcium 8.6
Vital Signs:
Vital Signs
Temp Pulse Resp BP Pulse Ox
97.7 F 72 20 150/90 97
10/19/23 03:00 10/19/23 06:23 10/19/23 03:00 10/19/23 06:23 10/19/23 03:00
I&O
10/18/23 10/19/23 10/20/23
06:59 06:59 06:59
Intake Total 720 / 720 1200 / 1200
Balance 720 / 720 1200 / 1200
[2023-10-19] MEDS: LOW STRENGTH ASPIRIN 81 MG PO (07:57)
[2023-10-19] MEDS: GLUCOPHAGE 500 MG PO ×2 (07:57→18:20)
[2023-10-19] MEDS: PLAVIX 75 MG PO (07:57)
[2023-10-19] MEDS: PROTONIX 40 MG PO (07:57)
[2023-10-19] MEDS: HEPARIN 5000 UNITS SC ×3 (07:58→23:00)
[2023-10-19] MEDS: NOVOLOG FLEXPEN-MODERATE RESISTANCE 1 UNITS SC (08:08)
[2023-10-19] MEDS: NOVOLOG MIX 70/30 FLEXPEN 30 UNITS SC ×2 (08:08→18:24)
--- NOTE | 2023-10-19 08:31 | W.PN.CD ---
Today's Communication / Plan
-
- Metoprolol to 50 mg BID
- Continue ASA/Plavix for now.
- If AF noted, should start Eliquis as well. Triple therapy for a week.
Impression / Plan
-
53-year-old male (primarily known to Dr. Taylor) with paroxysmal atrial fibrillation (recently prescribed Eliquis, but patient has not began taking), hypertension, chronic cigarette use (approximately one half PPD since age 11; quit 1 month ago
after marisol COVID), and obesity admitted with a STEMI.
CAD/STEMI:
-Successful HOLGER to mid LAD (10/15/2023).
-Continue aspirin/Brilinta.
-Continue rosuvastatin 40 mg daily.
HOCM
- Elevated transaortic gradient by cath:
- Suspected HOCM by echo
-Echocardiographic report HOCM, moderate to severe concentric LVH, and hyperdynamic LV function with LVEF >75%. Elevated gradient noted. Initial study with limited views of aortic leaflets but follow up study suggests adequate opening without
significant .
-Metoprolol started and uptitrated - now 25 mg q6h.
-Will change to Toprol 50 mg BID
NSVT - 5 beats 2/5 - prior to start of beta pilar
- On good dose of BB
DKA:
-Management as per primary team.
Hyponatremia
- Pseudohyponatremia
- tx per primary team
.
TRAMAINE
- creatinine improving and down to 0.9
- Came with Cr of 2.0
PAF:
-Patient never initiated Eliquis as an outpatient.
-CHADSVasc 3 (HTN, DM, CAD) Additional risk factors - Metabolic syndrome, Smoker, Untreated BRODIE.
-Obtain records for primary Thread Weaver if it is confirmed that patient has PAF, then triple therapy is recommended for 1 week by Interventional Cardiology and then Eliquis with Brilinta (or Plavix)--patient is currently in sinus rhythm.
-Home rhythm monitoring - Kardia device vs digital watch for AF alert.
Hypertension:
-Will optimize medications prior to discharge.
Chronic smoker.
-Should continue to refrain from tobacco use.
Obesity:
-Aggressive weight loss and regular exercise recommended.
Physical Exam
Vital Signs/Labs
Vital Signs
Temp Pulse Resp BP Pulse Ox
98.5 F 78 20 128/89 98
10/19/23 07:29 10/19/23 07:33 10/19/23 07:29 10/19/23 07:33 10/19/23 08:22
10/18/23 10/19/23 10/20/23
06:59 06:59 06:59
Actual Weight 132.1 kg 130.8 kg
10/19/23 03:21
10/19/23 03:21
PT 14.0 Sec (11.4-14.6) 10/16/23 05:33
INR 1.09 10/16/23 05:33
APTT 27.0 Sec (23.4-35.0) 10/16/23 05:33
Magnesium 2.0 mg/dl (1.6-2.3) 10/19/23 03:21
LAB Results
10/16/23
17:05
Troponin I 0.152 H*
Physical Exam
Constitutional: No acute distress and Comfortable
EENT: Anicteric and Moist mucous membranes
Cardiovascular: Rhythm & rate is regular, Pedal edema is absent, JVD pressure is normal and Systolic murmur absent
Respiratory: Respiratory effort normal, Lungs clear to auscul. and Wheeze Absent
GI: Soft, Non tender and Normal bowel sounds
Neuro/Psych: Alert, Oriented, AO x 3 and Motor deficits absent
Other: Cath Site
Data Reviewed
-
Date of Service: October 19, 2023
Medical Decision Making: Reviewed Test Results, Independent Historian Assessment and Review of Case with other Provider
EKG: Tracing Personally Visualized and interpreted
Echo: Report Reviewed by me
X-Ray/CT/US/MRI/NUC/PET: Image Personally Visualized and interpreted
Labs: Labs Reviewed by me
Old Records: Reviewed
--- NOTE | 2023-10-19 08:41 | PN.DE.MGMTRT ---
Insulin Management
- -
10/17/2023: Diabetes Management Consult
53 year old male p/w progressive chest pain exertional dyspnea for past 2 weeks, admitted on 10/14 with STEMI.
PMH includes: HTN, A-Fib, Morbid obesity, former smoker (quit 1 month ago) COVID infection 1 month ago.
A1C was >18.5%, Cr 1.-->1.2 today. Glucose on admission was 723, has remained elevated, FBG 295 this AM, premeal has trended up to 490.
Current diabetes regimen includes:AC NovoLog 5 units and Lantus 10 units has been increased to [address] Dye
Will increase AC NovoLog to 10 units. Cont moderate corrective and Lantus 20 units, 1st dose tonight.
Will follow and make further adjustment if necessary as A1C >18.5%
10/18/2023 Diabetes Management Follow up
Patient states he has been told he was borderline for diabetes but was never started on medication. Discussed with CM patient has no prescription plan. Lantus and novolog will be too expensive. Had hoped to start jardiance, farxiga or Trulicity
but due to cost will not. Will need to change insulin to 70/30 BID so he only has to purchase only one type. Will start 70/30 30 units BID first dose with dinner. Will also start metformin 500 mg BID first dose with dinner. Will check 3am
glucose.
10/19/2023 Diabetes Management Follow up
70/30 novolog started yesterday with dinner. HS glucose 168. 3AM glucose 154. To receive 30 units 70/30 insulin with breakfast, first dose and again with dinner. Due to cost this would be the most economical. Will also suggest to patient to
obtain a Adzilla glucose monitor as strips are less expensive than Contour for ongoing use. Will reinforce insulin pen and meter use.
Diabetes History
- -
Type of Diabetes: 2 requiring insulin
Pre-Admission Diabetes Regimen
10/19/23
03:21
Creatinine 0.9
Lab Results
Hemoglobin A1c > 18.5 % (4.0-5.6) H 10/15/23 13:00
Insulin Pump Settings
IP Diabetes Regimen
10/18/23 10/18/23 10/18/23
12:05 17:44 21:24
Glucose
POC Glucose 315 H 286 H 320 H
10/19/23 10/19/23 10/19/23
02:59 03:21 07:17
Glucose 154 H
POC Glucose 168 H 177 H
Meal type: Breakfast
Meal type: Lunch
Amount consumed: 100%
Amount consumed: 100%
Patient Education
--- NOTE | 2023-10-19 11:37 | CM ---
Chart reviewed. Patient is independent of ADLS, lives with his in a split level home, [address], ambulates with a SPC. Patient is currently with no discharge needs. CM to follow
[2023-10-19 12:16] LABS: Glucose - Point of Care 215 mg/dl (70-99)
[2023-10-19] MEDS: NOVOLOG FLEXPEN-MODERATE RESISTANCE 3 UNITS SC (13:12)
--- NOTE | 2023-10-19 16:29 | W.PN.UPDATE ---
Update Note
Progress Note Update
patient seen chart reviewed. mr margret filled me in on his hx. 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 he has struggled to have insurance given financial concerns but at this point he is grateful he
has insurance. he has been trying to get disability for three or four years. he misses working as he feels useless but he realistically feels gainful employ is beyond him given his medical issues. he is taking ativan which he feels is helpful. he
seems to have a realistic attitude vis a vis its pros and cons. would continue with it on a prn basis. he is really not so much interested in antidep but would like someone to talk to.suggested he call his insurer and ask them with whom they
participate. he says agencies have not called him back in the past. i suggested that he then call his insurance back and let them know agencies they contract with are not responding as they m ay be able to help. patient struggles w sleep.
suggested he google 'cognitive behavioral strategies for good sleep ' which some of my patients have found helpful. there are many impediments to sleep for mr oswald including jeremías, obesity etc. he struggles to be comfortable in bed as well given
back pain. psych will sign off.
[2023-10-19 17:11] LABS: Glucose - Point of Care 251 mg/dl (70-99)
[2023-10-19] MEDS: NOVOLOG FLEXPEN-MODERATE RESISTANCE 5 UNITS SC (18:21)
[2023-10-19] MEDS: CRESTOR 40 MG PO (18:25)
[2023-10-19] MEDS: TOPROL XL 50 MG PO (19:23)
--- NOTE | 2023-10-19 19:36 | PTCARENOTE ---
Pt denies any discomfort. Pt gave all his own insulin today accurately with minimal supervision. Pt walking single laps around CVICU and IVU. Pt quite short of breath after this activity taking several minutes to recover his breathing. Telemetry
shows sinus rhythm. Plan to decide on ICD on 10/20 per .
--- NOTE | 2023-10-19 21:00 | PTCARENOTE ---
Patient walking in room and halls. SR, dyspneic with exertion, resolves with rest. Denies pain, call quintana in reach
[2023-10-19 21:49] LABS: Glucose - Point of Care 292 mg/dl (70-99)
[2023-10-19] MEDS: ATIVAN 0.5 MG PO ×2 (23:00)
[2023-10-20] VITALS (8 sets, daily range): BP systolic 117–151; BP diastolic 60–100; BMI 40.3
[2023-10-20 04:43] LABS: Hematocrit 31.8 % (39.0-52.0); Hemoglobin 11.1 g/dL (13.0-18.0); Mean Corp Hgb Conc. 34.9 g/dL (33.0-37.0); Mean Corpuscular Hgb 29.5 pg (27.0-31.0); Mean Corpuscular Volume 84.6 fL (80.0-94.0); Mean Platelet Volume 11.6 fL (7.4-10.4); Platelet Count 143 10^3/uL (130-400); Red Blood Cell Count 3.76 10^6/uL (4.70-6.10); Red Cell Dist. Width 13.9 % (11.5-14.5); White Blood Cell Count 4.6 10^3/uL (4.8-10.8)
[2023-10-20 05:15] LABS: Blood Urea Nitrogen 13 mg/dl (9-20); Calcium 8.9 mg/dl (8.4-10.2); Carbon Dioxide 20 mmol/L (22-30); Chloride 103 mmol/L (98-107); Estimated Creatinine Clearance > 125 ml/min; Glucose 195 mg/dl (70-99); Magnesium 1.7 mg/dl (1.6-2.3); Phosphorus 3.9 mg/dl (2.5-4.5); Potassium 3.9 mmol/L (3.5-5.1); Sodium 134 mmol/L (135-145); eGFR > 60.00
--- NOTE | 2023-10-20 07:26 | W.PN.HOSP.TC ---
Today's Communication/Plan
-
cardiac optimization as per cardiology
glycemic control
will need paper scripts when ready for discharge
Assessment / Plan
Assessment / Plan
Physical Exam
General: No pallor, cyanosis, or jaundice.
HEENT: Throat clear. PERRLA Normocephalic atraumatic
NECK: Supple. No JVD Carotid Bruits
RESPIRATORY: Lungs clear to auscultation. No crackles wheezes stridor
CVS: S1 S2 NSR
ABDOMEN: Soft, non-tender. No distension. BS+/normal.
EXTREMITIES: No peripheral cyanosis or edema.
LEATHER FLESHER: AOx3. No focal deficits.
IMPRESSION:
53M morbid obesity former smoker (quit 1 month ago) COVID infection 1 month ago p/w with progressive chest pain exertional dyspnea for past 2 weeks described as burning left sided occasionally radiating to right- prompted by to visit ED when
pain became significantly debilitating limiting ambulation.� Occasionally use cane for ambulation due to past knee surgery.� ED evaluation was significant for STEMI, troponin elevation 0.083, DKA anion gap 22 with sugar 723,� pseudohyponatremia 123
corrected for hyperglycemia 130s.� Taken urgently to laborer rags LAD stent was placed with subsequent resolution of symptoms, chest pain and dyspnea.� Denies nausea vomiting.� Tachycardia otherwise VSS.
PLAN:
#STEMI
#brief cardiogenic shock following stemi stent placement requiring pressor since resolved
#HOCM
#self limited atrial flutter in 05/2023 noted in outpt records, briefly on Eliquis but could not afford
Cardio eval appreciated status post cath with LAD stent placement 10/15
Continue statin DAPT (aspirin and Brilinta) as per Cardio, possible triple therapy if hx pafib confirmed with patient's outpatient net development manager
Brillinta later switched to plavix as cost is prohibitive
ECHO noted mod to severe concentric left ventricular hypertrophy EF>75% consistent with HOCM
low dose metoprolol started as per cardio titrated up to 50 mg BID
Troponin trended to peak 0.157 since trended down
Currently Chest pain free, consistently NSR throughout stay as noted on telemetry, NSVT - 5 beats 10/17 - prior to start of beta pilar none since.
#Diabetes
#DKA
#Pseudohyponatremia, sodium relatively within normal limits when corrected for hyperglycemia
#Possible TRAMAINE versus CKD initial creatinine 1.6 unknown baseline
ICU admit
downgraded to IVU 10/16 with resolution DKA
Supervisor Mixing eval appreciated
Follow-up A1c >18.5
Insulin GTT transitioned to SubQ following closing of anion gap
IV fluid supplementation since discontinued with diet resumed tolerating well
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
#adjustment d/o anxiety depression
Psych eval appreciated cont prn PO ativan
#Morbid obesity
DVT prophylaxis heparin
GI prophylaxis Protonix
Full code
Medical Complexity: patient's health insurance unhelpful poor coverage, significant financial burden, needs paper scripts when ready for discharge
I spent a total of 55� � minutes with the patient or on the floor. More than 50% of this time involved counseling and coordination of care.
Anticipated Discharge: 24 - 48 hours
Subjective/Interval History
-
Date of Service: October 20, 2023
no acute distress. reports feeling well.
Objective Data
-
Labs:
Laboratory Results
10/20/23
04:23
WBC 4.6 L
Hgb 11.1 L
Hct 31.8 L
Plt Count 143
Sodium 134 L
Potassium 3.9
Chloride 103
Carbon Dioxide 20 L
BUN 13
Creatinine 0.8
Glucose 195 H
Calcium 8.9
Vital Signs:
Vital Signs
Temp Pulse Resp BP Pulse Ox
98.6 F 72 20 117/65 99
10/20/23 06:51 02/08/24 04:13 10/20/23 06:51 10/20/23 04:13 10/20/23 06:51
I&O
10/19/23 10/20/23 10/21/23
06:59 06:59 06:59
Intake Total 1200 / 1200 240 / 240
Balance 1200 / 1200 240 / 240
[2023-10-20] MEDS: PLAVIX 75 MG PO (08:53)
[2023-10-20] MEDS: TOPROL XL 50 MG PO ×2 (08:53→20:21)
[2023-10-20] MEDS: LOW STRENGTH ASPIRIN 81 MG PO (08:53)
[2023-10-20] MEDS: GLUCOPHAGE 500 MG PO ×2 (08:53→17:39)
[2023-10-20] MEDS: PROTONIX 40 MG PO (08:53)
[2023-10-20] MEDS: HEPARIN 5000 UNITS SC ×3 (09:00→23:00)
[2023-10-20] MEDS: NOVOLOG FLEXPEN-MODERATE RESISTANCE 3 UNITS SC (09:01)
[2023-10-20 09:02] LABS: Glucose - Point of Care 204 mg/dl (70-99)
[2023-10-20] MEDS: NOVOLOG MIX 70/30 FLEXPEN 30 UNITS SC (09:02)
--- NOTE | 2023-10-20 09:08 | PN.DE.MGMTRT ---
Insulin Management
- -
10/17/2023: Diabetes Management Consult
53 year old male p/w progressive chest pain exertional dyspnea for past 2 weeks, admitted on 10/14 with STEMI.
PMH includes: HTN, A-Fib, Morbid obesity, former smoker (quit 1 month ago) COVID infection 1 month ago.
A1C was >18.5%, Cr 1.-->1.2 today. Glucose on admission was 723, has remained elevated, FBG 295 this AM, premeal has trended up to 490.
Current diabetes regimen includes:AC NovoLog 5 units and Lantus 10 units has been increased to [address] Dye
Will increase AC NovoLog to 10 units. Cont moderate corrective and Lantus 20 units, 1st dose tonight.
Will follow and make further adjustment if necessary as A1C >18.5%
10/18/2023 Diabetes Management Follow up
Patient states he has been told he was borderline for diabetes but was never started on medication. Discussed with CM patient has no prescription plan. Lantus and novolog will be too expensive. Had hoped to start jardiance, farxiga or Trulicity
but due to cost will not. Will need to change insulin to 70/30 BID so he only has to purchase only one type. Will start 70/30 30 units BID first dose with dinner. Will also start metformin 500 mg BID first dose with dinner. Will check 3am
glucose.
10/19/2023 Diabetes Management Follow up
70/30 novolog started yesterday with dinner. HS glucose 168. 3AM glucose 154. To receive 30 units 70/30 insulin with breakfast, first dose and again with dinner. Due to cost this would be the most economical. Will also suggest to patient to
obtain a MobileHandshake glucose monitor as strips are less expensive than Contour for ongoing use. Will reinforce insulin pen and meter use.
10/20/2023 Diabetes Management Follow up
Patient receiving 70/30 novolog with breakfast and dinner. Glucose > 200 pre meal and HS. Will increase from 30 units BID to 35 units BID. I have priced the 70/30 Novolog 70/30 is $83.00 novolin 70/30 is $62.46. Due to financial constraints and
no prescription coverage will prescribe novolin 70/30. Also discussed with patient the ongoing cost of test strips for testing glucose. Recommend he obtain a Reli-On meter for $9.00 and 100 test strips for $17.88. He is appreciative of options at
a lower cost.
Diabetes History
- -
Type of Diabetes: 2 requiring insulin
Pre-Admission Diabetes Regimen
10/20/23
04:23
Creatinine 0.8
Lab Results
Hemoglobin A1c > 18.5 % (4.0-5.6) H 10/15/23 13:00
Insulin Pump Settings
IP Diabetes Regimen
10/19/23 10/19/23 10/19/23
12:14 17:10 21:47
Glucose
POC Glucose 215 H 251 H 292 H
10/20/23 10/20/23
04:23 08:59
Glucose 195 H
POC Glucose 204 H
Meal type: Dinner
Amount consumed: 100%
Patient Education
--- NOTE | 2023-10-20 09:32 | W.PN.CD ---
Today's Communication / Plan
-
tolerating beta pilar
continue DAPT today
will review issues related to prior atrial flutter episode and anticoaulatio issues with EP an interventional
Impression / Plan
-
53-year-old male (primarily known to Dr. Taylor) with paroxysmal atrial fibrillation (recently prescribed Eliquis, but patient has not began taking), hypertension, chronic cigarette use (approximately one half PPD since age 11; quit 1 month ago
after marisol COVID), and obesity admitted with a STEMI.
CAD/STEMI:
-Successful HOLGER to mid LAD (10/15/2023).
-Continue aspirin/Brilinta.
-Continue rosuvastatin 40 mg daily.
- continue BB
- not on ELVIN or ARB due to HOCM. BB being titrated.
HOCM
- Elevated transaortic gradient by cath:
- Suspected HOCM by echo
-Echocardiographic report HOCM, moderate to severe concentric LVH, and hyperdynamic LV function with LVEF >75%. Elevated gradient noted. Initial study with limited views of aortic leaflets but follow up study suggests adequate opening without
significant .
-Metoprolol started and uptitrated - now 25 mg q6h.
-Will change to Toprol 50 mg BID
NSVT - 5 beats 2/5 - [facility]
none since. Seen by EP not felt to be candidate for ICD at thistime.
- Ocontinue BB
DKA:
-Management as per primary team.
Hyponatremia
- Pseudohyponatremia
- tx per primary team
.
TRAMAINE
- creatinine improving and down to 0.9
- Came with Cr of 2.0
PAF:
-Patient never initiated Eliquis as an outpatient.
-CHADSVasc 3 (HTN, DM, CAD) Additional risk factors - Metabolic syndrome, Smoker, Untreated BRODIE.
-reviewed records. self limted atrial flutter in 05/2023. when toER and it converted. he had follow up at [facility]. He says he was briefly on Eliuqis but could not afford
Hypertension:
-stable
Chronic smoker.
-Should continue to refrain from tobacco use.
Obesity:
- weight loss recommended.
Physical Exam
Vital Signs/Labs
Vital Signs
Temp Pulse Resp BP Pulse Ox
98.6 F 79 20 146/82 99
10/20/23 06:51 10/20/23 08:00 10/20/23 06:51 10/20/23 06:53 10/20/23 09:11
10/19/23 10/20/23 10/21/23
06:59 06:59 06:59
Actual Weight 130.8 kg 131 kg
10/20/23 04:23
10/20/23 04:23
PT 14.0 Sec (11.4-14.6) 10/16/23 05:33
INR 1.09 10/16/23 05:33
APTT 27.0 Sec (23.4-35.0) 10/16/23 05:33
Magnesium 1.7 mg/dl (1.6-2.3) 10/20/23 04:23
Physical Exam
Constitutional: No acute distress
Cardiovascular: Rhythm & rate is regular
Respiratory: Respiratory effort normal
GI: Soft
Neuro/Psych: Alert and Oriented
Data Reviewed
-
Date of Service: October 20, 2023
Echo: Report Reviewed by me
Labs: Labs Reviewed by me
[2023-10-20 13:39] LABS: Glucose - Point of Care 123 mg/dl (70-99)
[2023-10-20] MEDS: NOVOLOG FLEXPEN-MODERATE RESISTANCE SC (13:39)
[2023-10-20 17:25] LABS: Glucose - Point of Care 268 mg/dl (70-99)
[2023-10-20] MEDS: CRESTOR 40 MG PO (17:39)
[2023-10-20] MEDS: NOVOLOG FLEXPEN-MODERATE RESISTANCE 5 UNITS SC (17:40)
[2023-10-20] MEDS: NOVOLOG MIX 70/30 FLEXPEN 35 UNITS SC (17:41)
--- NOTE | 2023-10-20 19:28 | PTCARENOTE ---
Pt up walking around unit, he states he can 'go further today and is less short of breath' with activity. Pt continues to give his own insulin with an accurate technique. Pt seen by knife setter assembler. Telemetry shows sinus rhythm.
[2023-10-20 22:06] LABS: Glucose - Point of Care 252 mg/dl (70-99)
--- NOTE | 2023-10-20 22:45 | PTCARENOTE ---
Patient walking in [place], states less shortness of breath with ambulation. Right groin, abdomen and right wrist bruised. 99% on room air, lungs sounds diminished at the bases. SR, murmur, BP 141/71, call quintana in reach
[2023-10-20] MEDS: ATIVAN 0.5 MG PO (23:00)
[2023-10-21 04:24] VITALS: BP 137/99; BMI 40.1
[2023-10-21 05:32] LABS: Hematocrit 32.7 % (39.0-52.0); Hemoglobin 11.5 g/dL (13.0-18.0); Mean Corp Hgb Conc. 35.2 g/dL (33.0-37.0); Mean Corpuscular Hgb 29.3 pg (27.0-31.0); Mean Corpuscular Volume 83.4 fL (80.0-94.0); Mean Platelet Volume 12.4 fL (7.4-10.4); Platelet Count 181 10^3/uL (130-400); Red Blood Cell Count 3.92 10^6/uL (4.70-6.10); Red Cell Dist. Width 14.4 % (11.5-14.5); White Blood Cell Count 6.1 10^3/uL (4.8-10.8)
[2023-10-21 05:42] LABS: Blood Urea Nitrogen 12 mg/dl (9-20); Carbon Dioxide 20 mmol/L (22-30); Chloride 105 mmol/L (98-107); Estimated Creatinine Clearance > 125 ml/min; Glucose 209 mg/dl (70-99); Magnesium 1.6 mg/dl (1.6-2.3); Phosphorus 4.5 mg/dl (2.5-4.5); Potassium 4.2 mmol/L (3.5-5.1); Sodium 133 mmol/L (135-145); eGFR > 60.00
[2023-10-21] MEDS: NOVOLOG MIX 70/30 FLEXPEN 35 UNITS SC (07:44)
[2023-10-21] MEDS: NOVOLOG FLEXPEN-MODERATE RESISTANCE 5 UNITS SC (07:45)
[2023-10-21 07:48] LABS: Glucose - Point of Care 266 mg/dl (70-99)
[2023-10-21] MEDS: GLUCOPHAGE 500 MG PO (07:56)
[2023-10-21] MEDS: TOPROL XL 50 MG PO (07:56)
[2023-10-21] MEDS: PLAVIX 75 MG PO (07:56)
[2023-10-21] MEDS: LOW STRENGTH ASPIRIN 81 MG PO (07:56)
[2023-10-21] MEDS: PROTONIX 40 MG PO (07:56)
[2023-10-21] MEDS: HEPARIN 5000 UNITS SC (07:57)
[2023-10-21 08:00] VITALS: BP 139/95
--- NOTE | 2023-10-21 08:33 | PN.DE.MGMTRT ---
Insulin Management
- -
10/17/2023: Diabetes Management Consult
53 year old male p/w progressive chest pain exertional dyspnea for past 2 weeks, admitted on 10/14 with STEMI.
PMH includes: HTN, A-Fib, Morbid obesity, former smoker (quit 1 month ago) COVID infection 1 month ago.
A1C was >18.5%, Cr 1.-->1.2 today. Glucose on admission was 723, has remained elevated, FBG 295 this AM, premeal has trended up to 490.
Current diabetes regimen includes:AC NovoLog 5 units and Lantus 10 units has been increased to [address] Dye
Will increase AC NovoLog to 10 units. Cont moderate corrective and Lantus 20 units, 1st dose tonight.
Will follow and make further adjustment if necessary as A1C >18.5%
10/18/2023: Diabetes Management Follow up
Patient states he has been told he was borderline for diabetes but was never started on medication. Discussed with CM patient has no prescription plan. Lantus and NovoLog will be too expensive. Had hoped to start Jardiance, Farxiga or Trulicity
but due to cost will not. Will need to change insulin to 70/30 BID so he only has to purchase only one type. Will start 70/30 30 units BID first dose with dinner. Will also start metformin 500 mg BID first dose with dinner. Will check 3am
glucose.
10/19/2023: Diabetes Management Follow up
70/30 NovoLog started yesterday with dinner. HS glucose 168. 3AM glucose 154. To receive 30 units 70/30 insulin with breakfast, first dose and again with dinner. Due to cost this would be the most economical. Will also suggest to patient to
obtain a AccessPay glucose monitor as strips are less expensive than Contour for ongoing use. Will reinforce insulin pen and meter use.
10/20/2023: Diabetes Management Follow up
Patient receiving 70/30 NovoLog with breakfast and dinner. Glucose > 200 pre meal and HS. Will increase from 30 units BID to 35 units BID. I have priced the 70/30 NovoLog 70/30 is $83.00 Novolin 70/30 is $62.46. Due to financial constraints and
no prescription coverage will prescribe Novolin 70/30. Also discussed with patient the ongoing cost of test strips for testing glucose. Recommend he obtain a Reli-On meter for $9.00 and 100 test strips for $17.88. He is appreciative of options at
a lower cost.
10/21/2023: Diabetes Management F/U:
Patient receiving 70/30 NovoLog with breakfast and dinner. Dose was increased to 35 units BID due to ongoing hyperglycemia.
Glucose has remained > 200 pre meal and HS. expect higher insulin requirements, as A1C >18.5%
Will increase 70/30 dose from 35 units BID to 40 units BID.
Pt stable for d/c home from diabetes standpoint. All insulin and supplies added to ambulatory orders.
Diabetes History
- -
Type of Diabetes: 2 requiring insulin
Pre-Admission Diabetes Regimen
10/21/23
04:33
Creatinine 0.8
Lab Results
Hemoglobin A1c > 18.5 % (4.0-5.6) H 10/15/23 13:00
Insulin Pump Settings
IP Diabetes Regimen
10/20/23 10/20/23 10/20/23
08:59 13:38 17:23
Glucose
POC Glucose 204 H 123 H 268 H
10/20/23 10/21/23 10/21/23
22:05 04:33 07:39
Glucose 209 H
POC Glucose 252 H 266 H
Meal type: Dinner
Meal type: Lunch
Meal type: Breakfast
Amount consumed: 100%
Amount consumed: 100%
Amount consumed: 100%
Patient Education
--- NOTE | 2023-10-21 08:51 | W.PN.HOSP.TC ---
Addendum entered and electronically signed by Rizwana Chew MD 10/21/23 12:18:
D/W cards
D/W case management
Discharge time 35 min
Original Note:
Today's Communication/Plan
-
Await LFTS
Await Cardiology plans to finalize discharge
Assessment / Plan
Assessment / Plan
IMPRESSION:
53M morbid obesity former smoker (quit 1 month ago) COVID infection 1 month ago p/w with progressive chest pain exertional dyspnea for past 2 weeks described as burning left sided occasionally radiating to right- prompted by to visit ED when
pain became significantly debilitating limiting ambulation.� Occasionally use cane for ambulation due to past knee surgery.� ED evaluation was significant for STEMI, troponin elevation 0.083, DKA anion gap 22 with sugar 723,� pseudohyponatremia 123
corrected for hyperglycemia 130s.� Taken urgently to shop laborer LAD stent was placed with subsequent resolution of symptoms, chest pain and dyspnea.� Denies nausea vomiting.� Tachycardia otherwise VSS.
PLAN:
#STEMI
#Brief cardiogenic shock following stemi stent placement requiring pressors- since resolved
#HOCM
Cardio eval appreciated status post cath with LAD stent placement 10/15
Continue statin DAPT (aspirin and Brilinta) as per Cardio, possible triple therapy if hx pafib confirmed with patient's outpatient beet end supervisor
Brillinta later switched to Plavix as cost prohibitive
ECHO noted mod to severe concentric left ventricular hypertrophy EF>75% consistent with HOCM
Low dose metoprolol started as per cardio titrated up to 50 mg BID
Troponin trended to peak 0.157 since trended down
No ELVIN inhibitor or ARB secondary to HOCM
#NSVT - 5 beats 10/17 - prior to start of beta pilar none since.
#Self limited atrial flutter in 05/2023 noted in outpt records, briefly on Eliquis but could not afford
#Elevated LFTs on 10/15/2023
Added onto today's labs to see the trend.
#Diabetes
DKA resolved
Hemoglobin A1c more than 18.5
On insulin 70 /30 at 35 units twice daily
Also on metformin
#Pseudohyponatremia, sodium relatively within normal limits when corrected for hyperglycemia
#TRAMAINE-resolved
#Adjustment d/o anxiety depression
Psych eval appreciated cont prn PO ativan
#Morbid obesity-weight loss advised
#Smoker-cessation counseling
#DVT prophylaxis heparin
#Full code
D/W Cards
Anticipated Discharge: Within 24 hours
Subjective/Interval History
-
Date of Service: October 21, 2023
Objective Data
-
Labs:
Laboratory Results
10/21/23
04:33
WBC 6.1
Hgb 11.5 L
Hct 32.7 L
Plt Count 181 D
Sodium 133 L
Potassium 4.2
Chloride 105
Carbon Dioxide 20 L
BUN 12
Creatinine 0.8
Glucose 209 H
Calcium 9.0
Vital Signs:
Vital Signs
Temp Pulse Resp BP Pulse Ox
97.6 F 74 18 139/95 98
10/21/23 08:00 10/21/23 08:00 10/21/23 08:00 10/21/23 08:00 10/21/23 08:00
I&O
10/20/23 10/21/23 10/22/23
06:59 06:59 06:59
Intake Total 240 / 240 240 / 240
Balance 240 / 240 240 / 240
--- NOTE | 2023-10-21 09:26 | PTCARENOTE ---
assumed care of pt from previous shift RN, sinus rhythm on tele, VSS, + peripheral pulses, no edema. Lungs diminished bilaterally, pox 98% on RA. + bs, tolerating PO intake, voids spontaneously. PIV flushes easily. Reviewed pre breakfast blood
glucose result w pt and sliding scale dosing. Pt was able to administer insulin w RN witness. Plan of care reviewed w the pt and questions encouraged.
--- NOTE | 2023-10-21 09:37 | CM ---
Addendum entered by Ayana Verduzco RN 10/21/23 12:17:
Free 30 day coupon placed in the patient's red discharge folder along with the Eliquis script. I also gave the patient the financial assistance program phone # [phone]
Original Note:
Received consult to allan Evans.
Per prior notes, patient has no RX plan. Therefore, patient would have to pay gregg lemus for all medication.
CM can provide free 30 d coupon but would not qualify for any other coupons beyond this and would have to pay out of pocket.
TT to MD to notify.
[2023-10-21 09:40] LABS: ALT (SGPT) 116 U/L (0-50); AST (SGOT) 96 U/L (17-59); Albumin 3.4 g/dl (3.5-5.0); Alkaline Phosphatase 103 U/L (38-126); Direct Bilirubin 0.4 mg/dl (0.0-0.4); Total Bilirubin 0.6 mg/dl (0.2-1.3); Total Protein 5.9 g/dl (6.3-8.2)
--- NOTE | 2023-10-21 11:00 | W.PN.CD ---
Today's Communication / Plan
-
cont Plavix 75mg daily, eliquis 5mg bid, Toprol XL 100 mg bid, rosuvastatin 40mg daily
discharge planning
we will arrange for follow up with us
please call us with additional questions
Impression / Plan
-
53-year-old male (primarily known to Dr. Taylor) with paroxysmal atrial fibrillation (recently prescribed Eliquis, but patient has not began taking), hypertension, chronic cigarette use (approximately one half PPD since age 11; quit 1 month ago
after marisol COVID), and obesity admitted with a STEMI.
CAD/STEMI:
-Successful HOLGER to mid LAD (10/15/2023).
-plan is Plavix/eliquis (s/p 1 week ASA)
-Continue rosuvastatin 40 mg daily.
- continue Toprol XL: now at 100mg bid
- not on ELVIN or ARB due to HOCM. BB being titrated.
HOCM
- Elevated transaortic gradient by cath:
- Suspected HOCM by echo
-Echocardiographic report HOCM, moderate to severe concentric LVH, and hyperdynamic LV function with LVEF >75%. Elevated gradient noted. Initial study with limited views of aortic leaflets but follow up study suggests adequate opening without
significant .
-cont Toprol XL
NSVT - 5 beats 2/5 - prior to start of beta pilar in [place] [facility] ami and lad stent
none since. Seen by EP not felt to be candidate for ICD at thistime.
- continue Toprol XL
DKA:
-Management as per primary team.
Hyponatremia
- Pseudohyponatremia
- tx per primary team
.
TRAMAINE
- improved
PAF:
-Patient never initiated Eliquis as an outpatient.
-CHADSVasc 3 (HTN, DM, CAD) Additional risk factors - Metabolic syndrome, Smoker, Untreated BRODIE.
-plan will be Plavix/eliquis
-we will provide 30 day free card, and info for him to call to get set up with [employer] payment assistance (I reviewed this with him)
Hypertension:
-stable
Chronic smoker.
-Should continue to refrain from tobacco use.
Obesity:
- weight loss recommended.
Physical Exam
Vital Signs/Labs
Vital Signs
Temp Pulse Resp BP Pulse Ox
97.6 F 74 18 139/95 98
10/21/23 08:00 10/21/23 08:00 10/21/23 08:00 10/21/23 08:00 10/21/23 09:34
10/20/23 10/21/23 10/22/23
06:59 06:59 06:59
Actual Weight 131 kg 130.4 kg
10/21/23 04:33
10/21/23 04:33
PT 14.0 Sec (11.4-14.6) 10/16/23 05:33
INR 1.09 10/16/23 05:33
APTT 27.0 Sec (23.4-35.0) 10/16/23 05:33
Magnesium 1.6 mg/dl (1.6-2.3) 10/21/23 04:33
Physical Exam
Constitutional: No acute distress and Comfortable
EENT: Moist mucous membranes
Cardiovascular: Rhythm & rate is regular, Pedal edema is absent, JVD pressure is normal and Systolic murmur absent
Respiratory: Respiratory effort normal, Lungs clear to auscul. and Wheeze Absent
GI: Soft, Distention absent and Flat
Neuro/Psych: AO x 3
Data Reviewed
-
Date of Service: October 21, 2023
EKG: Other (Tele: NSR 70s)
Labs: Labs Reviewed by me
[2023-10-21 11:04] VITALS: BP 137/67
[2023-10-21] MEDS: ELIQUIS 5 MG PO (11:39)
[2023-10-21] MEDS: MAGNESIUM OXIDE 500 MG PO (11:39)
[2023-10-21 12:01] LABS: Glucose - Point of Care 153 mg/dl (70-99)
--- NOTE | 2023-10-21 12:18 | W.DS.TRANS ---
Addendum entered and electronically signed by Rizwana Chew MD 10/21/23 16:51:
Dictation- [id number]
Original Note:
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
-
Discharge Instructions:
Discharge Diagnosis/Procedures STEMI, HOCM, atrial flutter, diabetes, DKA ,
Acute kidney injury, anxiety
Diet 2 Gram Sodium,Low Cholesterol,Diabetic, Carb
Controlled
Activity As tolerated
Driving Restrictions As prior to admission
Blood Work CMP 1 week, CBC 1 week
Stop these medications: stop Valsartan
Instructions:
Stand-Alone Forms:
Changes to Home Medications: Yes
Discharge Medications:
DC Medications w/original date entered in [facility]
Centrum Adult 50 Plus 1XD Supplement 10/15/23
Prilosec OTC 20 1XD Gastrointestinal Issue 10/15/23
apixaban 5 mg tablet (Eliquis) 5 mg PO BID Blood clot prevention/tx #60 tabs 10/21/23
blood sugar diagnostic (OneTouch Verio test strips) #200 ea 10/21/23
blood-glucose meter (ReliOn All-In-One Meter kit) #1 ea 10/21/23
clopidogrel 75 mg tablet 75 mg PO DAILY Blood clot prevention/tx #60 tabs 10/21/23
insulin NPH-regular 70-30 U-100 insulin 100 unit/mL subcutaneous pen (Novolin 70-30 FlexPen U-100 Insulin) 35 unit (0.35 mL) SC BID Diabetes #15 mL 10/21/23
lancets 21 gauge (Color Lancets) #200 ea 10/21/23
magnesium oxide 500 mg PO DAILY Electrolyte Repletion #0 tabs 10/21/23
metformin 500 mg tablet 500 mg PO BID@0800,1700 Diabetes #60 tabs 10/21/23
metoprolol succinate 100 mg tablet,extended release 24 hr 100 mg PO BID Heart disease/condition #60 tabs 10/21/23
pen needle, diabetic 32 gauge x ' (BD Ultra-Fine Ida Pen Needle) #200 ea 10/21/23
rosuvastatin 40 mg tablet 40 mg PO QPM High cholesterol #60 tabs 10/21/23
Home Medication Changes
new
apixaban 5 mg tablet (Eliquis) 5 mg PO BID Blood clot prevention/tx #60 tabs 10/21/23
blood sugar diagnostic (OneTouch Verio test strips) #200 ea 10/21/23
blood-glucose meter (ReliOn All-In-One Meter kit) #1 ea 10/21/23
clopidogrel 75 mg tablet 75 mg PO DAILY Blood clot prevention/tx #60 tabs 10/21/23
insulin NPH-regular 70-30 U-100 insulin 100 unit/mL subcutaneous pen (Novolin 70-30 FlexPen U-100 Insulin) 35 unit (0.35 mL) SC BID Diabetes #15 mL 10/21/23
lancets 21 gauge (Color Lancets) #200 ea 10/21/23
magnesium oxide 500 mg PO DAILY Electrolyte Repletion #0 tabs 10/21/23
metformin 500 mg tablet 500 mg PO BID@0800,1700 Diabetes #60 tabs 10/21/23
metoprolol succinate 100 mg tablet,extended release 24 hr 100 mg PO BID Heart disease/condition #60 tabs 10/21/23
pen needle, diabetic 32 gauge x /32' (BD Ultra-Fine Ida Pen Needle) #200 ea 10/21/23
rosuvastatin 40 mg tablet 40 mg PO QPM High cholesterol #60 tabs 10/21/23
Valsartan stopped
Pending Results: No
[2023-10-21] MEDS: NOVOLOG FLEXPEN-MODERATE RESISTANCE 1 UNITS SC (12:37)
--- NOTE | 2023-10-21 13:23 | PTCARENOTE ---
Diabetes Education- Follow up with Chester for glucometer and insulin instructions. Able to repeat back testing times, ACHS as well as treatment of hypoglycemia. New booklet provided as his insulin is being changed from basal/bolus to 70/30 BID.
Reviewed onset, peak and duration for this insulin and he is aware to test blood sugar, inject the 70/30, and eat in about 20 minutes. To inject before breakfast and before dinner. This information marked on the log sheet as well. Emphasized
importance of not injecting any insulin for lunch. He has self injected and is able to correctly verbalize the steps to inject. Aware of injection sites. He is nervous as he felt he would have to calculate his dose, reassured him that he will be
discharged on a set dose, no calculations needed. He is to follow up will his PCP next week, take his log sheet with blood sugar readings for any medication adjustments. His has purchased the Reli-on glucometer from [employer] with supplies.
Questions answered and he is aware to contact with any questions.
--- NOTE | 2023-10-21 13:27 | PTCARENOTE ---
Confirmed w Dr. Chew that pt is to be discharged on 35 units of 70/30 BID despite diabetic team changing inpt dosing to 40 units BID.
--- NOTE | 2023-10-21 15:12 | PTCARENOTE ---
discharge order received. tele monitor d/c'ed, assisted pt w shower.
[2023-10-21] MEDS: FLUZONE QUAD 2023-2024 SYRINGE 0.5 ML IM (15:35)
--- NOTE | 2023-10-21 16:08 | PTCARENOTE ---
discharge instructions, follow up appointments and prescriptions reviewed with the patient and his in depth, questions encouraged. Emotional support provided.
== END 2023-10-21 16:04 | disposition home or self-care (01) | DRG 321 ==
LOC: IVU 12:49
PROVIDERS: Internal Medicine; Internal Medicine Interventional Cardiology; Nurse Practitioner Primary Care; ADMITTING PHYSICIAN Emergency Medicine; ATTENDING PHYSICIAN Hospitalist; CONSULT PHYSICIAN Internal Medicine; FAMILY PHYSICIAN Family Medicine; OTHER PHYSICIAN Internal Medicine Pulmonary Disease; OTHER PHYSICIAN Psychiatry & Neurology Psychiatry
PROC: 4A023N7 Measurement of Cardiac Sampling and Pressure, Left Heart, Percutaneous Approach (ICD-10-PCS; 2023-10-15)
PROC: B2151ZZ Fluoroscopy of Left Heart using Low Osmolar Contrast (ICD-10-PCS; 2023-10-15)
PROC: 027034Z Dilation of Coronary Artery, One Artery with Drug-eluting Intraluminal Device, Percutaneous Approach (ICD-10-PCS; 2023-10-15)
PROC: B2111ZZ Fluoroscopy of Multiple Coronary Arteries using Low Osmolar Contrast (ICD-10-PCS; 2023-10-15)
PROC: 3E02340 Introduction of Influenza Vaccine into Muscle, Percutaneous Approach (ICD-10-PCS; 2023-10-21)
DX: I21.09 ST elevation (STEMI) myocardial infarction involving other coronary artery of anterior wall (principal); E11.10 Type 2 diabetes mellitus with ketoacidosis without coma; R57.0 Cardiogenic shock; I42.1 Obstructive hypertrophic cardiomyopathy; I48.92 Unspecified atrial flutter; N17.9 Acute kidney failure, unspecified; I47.20 Ventricular tachycardia, unspecified; Z68.41 Body mass index [BMI] 40.0-44.9, adult; E66.01 Morbid (severe) obesity due to excess calories; I25.10 Atherosclerotic heart disease of native coronary artery without angina pectoris; I10 Essential (primary) hypertension; I48.0 Paroxysmal atrial fibrillation; R74.01 Elevation of levels of liver transaminase levels; G47.33 Obstructive sleep apnea (adult) (pediatric); F32.A Depression, unspecified; F43.22 Adjustment disorder with anxiety; Z86.16 Personal history of COVID-19; Z87.891 Personal history of nicotine dependence; Z23 Encounter for immunization; Z79.4 Long term (current) use of insulin
CPT/HCPCS: 93308; 71045; 76937; 80048; 80053; 82248; 82805; 82947; 82962; 83036; 83735; 84100; 84484; 85025; 85027; 85347; 85610; 85730; 90686; 93005; 93306; 93321; 93325; 93458; 99152; 99153; 99291; 99406; C1725; C1760; C1769; C1874; C1894; C9606; G0008; Q9967

== ENCOUNTER → 2023-11-07 12:00 | Outpatient (REF) | payer OTHER, SELFPAY ==
--- NOTE | 2023-11-02 12:48 | PN.DIAED02 ---
Referral
DSME Class Series Code: [id number]
Referred For: Diabetes Self-Management Training, Self-Blood Glucose Monitoring, Long-Term Complication Instruction, Accute Complication Instruction, Medication management, Care Coordination, Disease Management
PHI Release Authorization Form Signed: Yes
Patient Problems:
Current Active Problems
Problem Status Onset
Uncontrolled diabetes mellitus with hyperglycemia ~10/15/23
Demographic
(1) Uncontrolled diabetes mellitus with hyperglycemia
Status: Acute
Qualifiers:
Diabetes mellitus type: type 2 Qualified Code(s): E11.65 - Type 2 diabetes mellitus with hyperglycemia
Code(s): E11.65 - Type 2 diabetes mellitus with hyperglycemia
Patient's primary language-: Hebrew
Education: Some college
Occupation: Other (Unemployed)
- Social
Primary Support Person: Self & spouse
Primary Care Takers: Self & spouse
Living Arrangements: Self & spouse
- Learning Methods
Preferred Method: Hands-on demonstration
Barriers to Learning: None
Glycemic Control
- Blood Glucose Monitoring Assessment
Date: 11/02/23 (FBG 98)
Blood glucose monitoring at home: Yes
Monitor Brands: Other (Contour next EZ)
Frequency: 4x per day
Time: fasting, before breakfast, before lunch, before dinner, bedtime
Patient uses Alternate Site Testing: No
Patient instructed on Use and Limitation: No
- Blood Glucose Monitoring Results
Source: log book
Blood Glucose Monitoring Log:
FBG range 86 to 107
Premeal range 78 to 138
- Hemoglobin A1c
Date: 10/15/23
A1C Percentage (%): 18.5
Medical History of Diabetes
Family Diabetes History: Unknown (Was Adopted )
Previous Diabetes Education: No
Previous visit with Dietitian: No
Complications/Comorbidity/Specialist: Heart Disease, Hypertension, Hyperlipidemia, Kidney / bladder disease
Current Home Medication
- Insulin Management
Patient adjusts own insulin dosages: No
Patient has access to glucagon: Yes
- Insulin Types
NovoLog Mix 70/30 - Aspart protamin/Aspart
Insulin Injection Site: Abdomen
Administration Type: FlexPen
Needle Length: ' (4 mm)
Needle Gauge: 32
Measures
- Anthropometrics
Height: 5 ft 11 in
Actual Weight: 135.171 kg
- Blood Pressure / Pulse
Blood pressure: 147/80
Pulse: 59
- Diabetes Management
Medical Management for Diabetes: Complete physical exam (10/24/2023), Dental exam (12/2022)
Self-Care
- Tobacco Usage
Do you now, or have you ever smoked?: Quit in last year (08/31/2023)
Amount (per day): <5 cigarettes per day
- Alcohol & Drugs Usage
Drinks Alcohol: No
Uses Recreational Drugs: No
- Meals & Dining
Meals & Dining: Patient skips meals: No, Food Intolerance / Allergy: No, Cultural / [employer] Dietary Needs: No
Primary Food Sales Agent Food Vending Service: Spouse
Primary Roll Finisher: Spouse
Dining Out Frequency: 1-3x per week
- Physical Activity
Physical Limitation: No
Patient participates in physical Activity: Yes (Due to Recent Acute DC)
Activity Types: walking
Duration: 10-20 minutes
Frequency: 3-5x per week
Intensity: Easy
- Self Foot-Care
Foot Problems: None
Performs Self Foot-Exam: Yes
Frequency: Daily
- Patient-Self Assessment
Diabetes Knowledge: Poor
Feelings About Diabetes: Fear, Overwhelmed / Confused, Sadness / Depression, Anger
General Health: Poor
Importance of Health: Extremely
Stress Level: High
Diabetes Interferes With:: Family/social activities, Sexual relations, Finances
Barriers to Diabetes Management: Nothing
Depression Survey Score: 7
- Diabetes Identification
Carries Diabetes Identification: Yes
Diabetes Identification Information Provided: Yes
Care Plan
- Education Needs
Patient Education Needs: Diabetes disease process, Chronic complications, Acute complications, Medication, Monitoring, Physical activity, Psychosocial Adjustment, Nutritional management, Goal setting & problem solving
Recommended Diabetes Training Program based on assessment: Outpatient Diabetes Education Program
- Plan of Care
Plan of Care:
Met with Chester and his - Nancy today for registration and initiation of Diabetes Self management. Chester was recently admitted to the hospital for STEMI. His PMH includes: HTN, A-Fib, Hypertrophic cardiomyopathy, Atrial flutter, Anxiety, Morbid
obesity, former smoker (quit 1 month ago) COVID infection 1 month ago. He was recommended by his PCP for DSME due to recent new Dx of T2DM with an A1C of 18.5%. He was discharged from the hospital last week and has been taking Insulin 70/30 35 units
BID with Metformin 500mg BID. He reports that he has been monitoring his blood sugars at home and has been keeping a glucose log that shows a FBG range of 86 to 107 and premeal range of 78 to 138. He was encouraged to continue monitoring his blood
sugars 4 times a day, before each meal and at bedtime.
Pt was counseled with emphasis on the importance of Physical activity, need to adhere to a healthy life style including healthy eating, taking his medications and monitoring blood glucose. We spent a good amount of time discussing dietary choices.
Goals for physical activity were established; pt will start walking for 30 minutes 5 days a week but will start formal physical exercise with Cardiac rehab in 4 weeks.
All questions and concerns were addressed and answered to their satisfaction.
--- NOTE | 2023-11-02 13:27 | PN.DIAED04 ---
Education Record
- Education Record
Class Attended: Other (pre-Registration for DSME Classes)
DSME Class Series Code: [id number]
Instructor: Nurse Practitioner
Class Length (mins): 60
Pre-Program Knowledge: No knowledge
Pre-Test Score (%): 53
Goals
- Goal 1
Being Active: Exercise 30 minutes-5 times per week
Goals To Be Evaluated: Exercise 30 mins-5x/week
- Goal 2
Healthy Eating: Make better food choices, Follow meal plan
Goals To Be Evaluated: Make better food choices. Follow meal plan
- Goal 3
Monitoring: Check blood sugar 4x daily-b4 breakfast/b4 lunch/b4 dinner/at bedtime, Follow monitoring schedule
Goals To Be Evaluated: Check blood sugar 4x/day. Follow monitoring times
--- NOTE | 2023-11-07 15:40 | PN.DIAED04 ---
Education Record
- Education Record
Class Attended: Class 1
DSME Class Series Code: [id number]
Instructor: Nurse Practitioner (DIANE Ricketts)
Class Length (mins): 120
Post-Class 1 Test Score (%): 100
--- NOTE | 2023-11-07 15:40 | PN.DIAED14 ---
This is to notify you that your patient with diabetes, REGGIE GOODRICH ( 1970), has enrolled in our diabetes self-management classes that are being held at [facility].
These classes will include an introduction to diabetes, diet, medication, exercise and prevention of complications. At the end of our class series, you will receive a report of your patient's participation and progress for your records.
Please contact me at the Diabetes Center, , if there is any particular information regarding your patient that might be helpful to me.
Sincerely,
--- NOTE | 2023-11-09 16:24 | PN.DIAED06 ---
Meal Plans - Regular
- Meal Plan
Diabetic Meal Plan Name: 2200 calories
Breakfast - Total Carbohydrate (grams): 60
Breakfast - Starch Carbohydrate: 0
Breakfast - Fruit Carbohydrate: 0
Breakfast - Milk Carbohydrate: 0
Breakfast - Nonstarchy Vegetables: Yes
Breakfast - Meat/Protein: 1
Breakfast - Fat: 2
Morning Snack - Total Carbohydrate (grams): 30
Morning Snack - Starch Carbohydrate: 0
Morning Snack - Fruit Carbohydrate: 0
Morning Snack - Milk Carbohydrate: 0
Morning Snack - Nonstarchy Vegetables: Yes
Morning Snack - Meat/Protein: 0.5
Morning Snack - Fat: 0
Lunch - Total Carbohydrate (grams): 45
Lunch - Starch Carbohydrate: 0
Lunch - Fruit Carbohydrate: 0
Lunch - Milk Carbohydrate: 0
Lunch - Nonstarchy Vegetables: Yes
Lunch - Meat/Protein: 3
Lunch - Fat: 2
Afternoon Snack - Total Carbohydrate (grams): 30
Afternoon Snack - Starch Carbohydrate: 0
Afternoon Snack - Fruit Carbohydrate: 0
Afternoon Snack - Milk Carbohydrate: 0
Afternoon Snack - Nonstarchy Vegetables: Yes
Afternoon Snack - Meat/Protein: 0.5
Afternoon Snack - Fat: 0
Dinner - Total Carbohydrate (grams): 45
Dinner - Starch Carbohydrate: 0
Dinner - Fruit Carbohydrate: 0
Dinner - Milk Carbohydrate: 0
Dinner - Nonstarchy Vegetables: Yes
Dinner - Meat/Protein: 4
Dinner - Fat: 2
Evening Snack - Total Carbohydrate (grams): 15
Evening Snack - Starch Carbohydrate: 0
Evening Snack - Fruit Carbohydrate: 0
Evening Snack - Milk Carbohydrate: 0
Evening Snack - Nonstarchy Vegetables: Yes
Evening Snack - Meat/Protein: 0
Evening Snack - Fat: 0
== END ==
LOC: DES 12:00
PROVIDERS: ATTENDING PHYSICIAN Family Medicine
DX: E11.65 Type 2 diabetes mellitus with hyperglycemia (principal)
CPT/HCPCS: 99078

== ENCOUNTER → 2023-11-14 12:00 | Outpatient (REF) | payer OTHER, SELFPAY ==
--- NOTE | 2023-11-14 15:22 | PN.DIAED04 ---
Education Record
- Education Record
Class Attended: Class 2
DSME Class Series Code: [id number]
Instructor: Registered Dietitian (Alyssa Tillman, RD, LDN, CDE)
Class Length (mins): 120
== END ==
LOC: DES 12:00
PROVIDERS: ATTENDING PHYSICIAN Family Medicine
DX: E11.65 Type 2 diabetes mellitus with hyperglycemia (principal)
CPT/HCPCS: 99078

== ENCOUNTER → 2023-11-21 12:00 | Outpatient (REF) | payer OTHER, SELFPAY ==
--- NOTE | 2023-11-28 10:50 | PN.DIAED04 ---
Education Record
- Education Record
Class Attended: Class 3
DSME Class Series Code: [id number]
Instructor: Registered Dietitian (Alyssa Tillman, RD, LDN, CDE)
Class Length (mins): 120
Post-Class 2 & 3 Test Score (%): 69
== END ==
LOC: DES 12:00
PROVIDERS: ATTENDING PHYSICIAN Family Medicine
DX: E11.65 Type 2 diabetes mellitus with hyperglycemia (principal)
CPT/HCPCS: 99078

== ENCOUNTER → 2023-11-28 12:00 | Outpatient (REF) | payer OTHER, SELFPAY ==
--- NOTE | 2023-12-05 14:48 | PN.DIAED04 ---
Education Record
- Education Record
Class Attended: Class 4
DSME Class Series Code: [id number]
Instructor: Nurse Practitioner (DIANE Ricketts)
Class Length (mins): 120
Post-Class 4 Test Score (%): 73
== END ==
LOC: DES 12:00
PROVIDERS: ATTENDING PHYSICIAN Family Medicine
DX: E11.65 Type 2 diabetes mellitus with hyperglycemia (principal)
CPT/HCPCS: 99078

== ENCOUNTER → 2023-12-05 12:00 | Outpatient (REF) | payer OTHER, SELFPAY ==
--- NOTE | 2023-12-06 15:01 | PN.DIAED16 ---
This is to notify you that your patient with diabetes, REGGIE GOODRICH ( 1970), has attended the entire series of Diabetes Self-Management Education Classes.
Class 1 (120 minutes): Diabetes Overview - monitoring, stress/psychosocial adjustment, support, goal setting
Class 2 (120 minutes): Meal Planning - serving sizes, menu plans
Class 3 (120 minutes): Introduction to Carbohydrate Counting, Analyzing Food Labels
Class 4 (120 minutes): Medication, Exercise and Activity
Class 5 (120 minutes): Sick Day Management, Strategies to Reduce Complications, Problem Solving, Resources
The following behavioral goals were identified:
Exercise 30 mins-5x/week
Make better food choices
Follow meal plan
Check blood sugar 4x/day
Follow monitoring times
A follow-up call will be made within three to six months to evaluate attainment of these goals and to check post-program Hemoglobin A1c and overall progress. All class participants are encouraged to contact me if I can be any further assistance in
learning how to manage their diabetes.
Sincerely,
--- NOTE | 2023-12-08 09:59 | PN.DIAED04 ---
Education Record
- Education Record
Class Attended: Class 5
DSME Class Series Code: [id number]
Instructor: Nurse Practitioner (DIANE Ricketts)
Class Curriculum:
Outpatient Diabetes Education Program:
Class 5 (120 minutes)
Prevent, detect, and treat acute complications
Prevent, detect, and treat chronic complications through risk reduction
Develop personal strategies to address psychosocial issues and concerns
Development of diabetes self-management support plan
Letter to physician with DSMS plan attached sent
Class Length (mins): 120
Post-Program Knowledge: Demonstrates competency
Post-Test Score (%): 88
Post-Program Assessment
- Post-Program Assessment
Actual Weight: 284 lb
Blood pressure: 148/91
Post-Program Depression Survey Score: 5
Reviewing Previous Goals?: Yes
Pre-Program Depression Survey Score: 7
- Goals 1 Evaluation
Goals To Be Evaluated: Exercise 30 mins-5x/week
- Goals 2 Evaluation
Goals To Be Evaluated: Make better food choices. Follow meal plan
- Goals 3 Evaluation
Goals To Be Evaluated: Check blood sugar 4x/day. Follow monitoring times
== END ==
LOC: DES 12:00
PROVIDERS: ATTENDING PHYSICIAN Family Medicine
DX: E11.65 Type 2 diabetes mellitus with hyperglycemia (principal)
CPT/HCPCS: 99078

== ENCOUNTER → 2025-08-13 07:52 | Outpatient (REF) | payer BC, SELFPAY | LOC: RCS 07:52 | PROVIDERS: ATTENDING PHYSICIAN Nurse Practitioner; FAMILY PHYSICIAN Family Medicine | DX: I42.1 Obstructive hypertrophic cardiomyopathy (principal); I25.810 Atherosclerosis of coronary artery bypass graft(s) without angina pectoris; M79.604 Pain in right leg; M79.605 Pain in left leg | CPT/HCPCS: 93306; 93922; 93925 ==